=== PATIENT | female | born 1980 | race Caucasian/White ===

== ENCOUNTER 2017-11-13 06:05 | Day surgery (SDC) | payer OTHER ==
[2017-11-09 14:30] VITALS: BMI 31.8
[2017-11-13] MEDS ORDERED: ePHEDrine SULFATE 50 MG/1 ML AMPULE ONE (07:08)
[2017-11-13] MEDS ORDERED: SUCCINYLCHOLINE CHLORIDE 200 MG/10 ML VIAL ONE (07:09)
[2017-11-13] MEDS ORDERED: PROPOFOL 20 ML ONE ×6 (07:09→10:32)
[2017-11-13] MEDS ORDERED: MIDAZOLAM HCL 2 MG/2 ML SINGLE DOSE VIAL ONE ×2 (07:09→10:32)
[2017-11-13] MEDS ORDERED: ceFAZolin SODIUM 1 GM VIAL ONE (07:14)
[2017-11-13] MEDS ORDERED: KETOROLAC TROMETHAMINE 30 MG/1 ML VIAL ONE ×2 (07:14→10:32)
[2017-11-13] MEDS ORDERED: LIDOCAINE HCL/PF 2% SDV 5ML VIAL ONE ×2 (07:14→10:32)
[2017-11-13] MEDS ORDERED: DEXAMETHASONE SOD PHOSPHATE 4 MG/1 ML VIAL ONE ×2 (07:14→13:50)
[2017-11-13] MEDS ORDERED: INSULIN REGULAR HUMAN 100 UNITS/ML *VIAL SQ ONE (07:44)
--- NOTE | 2017-11-13 12:38 | HP ---
History & Physical Update - History History: No Change - Physical Physical: No Change - Assessment Assessment: No Change - Plan Plan: No Change (Consent signed, all questions answered)
--- NOTE | 2017-11-13 14:03 | OP ---
Operative Note - Note: Operative Date: 11/13/17 Pre-Operative Diagnosis: 36yo with menometrorrhagia, anemia Operation: Hysteroscopy, polypectomy, D&C, Endometrial ablation Findings: Endometrial polyp removed with TruClear device Post-Operative Diagnosis: Other (Endometrial polyp) Surgeon: Mana Nolasco Anesthesiologist/HARVEST WORKER: Cheyenne Lara Anesthesia: MAC Specimens Removed: Endometrial polyp and endometrial curettings Estimated Blood Loss (mls): 0 Instrument used (Debridements only): Truclear and Genesys Drains & Tubes with Location: Fluid deficit 30cc Drains, Volume Out (mls): 25 Fluid Volume Replaced (mls): 600 Operative Report Dictated: Yes
[2017-11-13] MEDS ORDERED: ONDANSETRON 4 MG/2 ML VIAL IVPUSH PRN ×2 (14:08→14:17)
[2017-11-13] MEDS ORDERED: oxyCODONE HCL 5 MG TABLET PO PRN ×2 (14:08→14:17)
[2017-11-13] MEDS ORDERED: ACETAMINOPHEN 1000 MG/100 ML VIAL (NON FORMULARY) IVPB PRN (14:08)
[2017-11-13] MEDS ORDERED: LACTATED RINGERS SOLUTION 1,000 ML IV SCH (14:15)
[2017-11-13] MEDS ORDERED: IBUPROFEN 800 MG/8 ML IJ IVPB PRN (14:17)
[2017-11-13] MEDS ORDERED: IBUPROFEN 600 MG TABLET (FP) PO PRN (14:17)
[2017-11-13] MEDS ORDERED: ACETAMINOPHEN INJECTION 100 ML IVPB ONE (14:29)
[2017-11-13] MEDS ORDERED: ELECTROLYTE-148 SOLN 1,000 ML IV SCH (14:30)
[2017-11-13 14:44] VITALS: TEMP 98.6
[2017-11-13] MEDS ORDERED: oxyCODONE HCL 5 MG TABLET ONE (15:52)
[2017-11-13 17:21] VITALS: BP 125/79; PULSE 74
--- NOTE | 2017-11-14 08:08 | OP ---
DATE OF OPERATION: 11/13/2017 PREOPERATIVE DIAGNOSIS: A 36-year-old with menometrorrhagia and anemia. POSTOPERATIVE DIAGNOSES: A 36-year-old with menometrorrhagia and anemia and finding of an endometrial polyp. OPERATION: Hysteroscopy, polypectomy, dilation and curettage and endometrial ablation. SURGEON: Mana Nolasco MD ANESTHESIOLOGIST: Cheyenne Lara MD ANESTHESIA: MAC. SPECIMENS REMOVED: Endometrial polyp and endometrial curettings. DESCRIPTION OF THE OPERATIVE PROCEDURE: After ensuring informed consent, patient was brought to the operating room where she was placed in dorsal lithotomy position. Perineum was prepped and draped in sterile fashion. Bladder was drained of 25 mL of urine. The 5-mm TRUCLEAR hysteroscope was calibrated and primed. The anterior lip of the cervix was articulated with a single-tooth tenaculum and the cervix was gradually dilated up to gauge 19 with DeLee dilators. The 5-mm hysteroscope was introduced into the uterus and posterior uterine wall was found to contain endometrial polyp. Bilateral tubal ostia were visualized. The small TRUCLEAR resecting device was introduced through the port and resection of the polyp as well as the endometrial lining was performed. TRUCLEAR device was removed from the uterine cavity. Sharp curettage was performed as well to assure the uterine sound. Subsequently, the 7-mm Idania HG device was introduced. Cavity was visualized again, cleared of clots and debris and full 10-minute hydrothermal ablation cycle was performed with good visualization of the cavity. The fluid was then cooled down and the device was removed from the uterine cavity. Successful hydrothermal ablation cycle was confirmed. Instruments and sponges were removed from the vagina. Instrument and sponge count was correct x2. Patient received 600 mL of fluids. The fluid deficit was 30 mL. Estimated blood loss was zero. Patient tolerated the procedure well, was extubated and brought to the recovery room in stable condition. Dania [id number]
--- NOTE | 2017-11-15 14:24 | PATH ---
Surgical Pathology Report Patient Name: ACOSTA CANTU [facility]. Rec. #: [id number] /Age/Gender: 1980 (Age: 36) / F Account: [id number] Location: [facility] SURGICAL Taken: 11/13/2017 Received: 11/14/2017 Reported: 11/15/2017 Physicians: Mana Nolasco M.D. Specimen(s) Received ENDOMETRIAL CURETTINGS AND POLYP Clinical History Abnormal menstrual bleeding Final Diagnosis ENDOMETRIAL POLYPS/ENDOMETRIAL CURETTINGS, DILATION AND CURETTAGE: ENDOMETRIAL POLYP, SECRETORY ENDOMETRIUM, SUPERFICIAL MYOMETRIUM, AND BENIGN CERVICAL TISSUE. Electronically Signed Karen Castellanos M.D. Gross Description Received in formalin labeled "endometrial polyps/endometrial curettings," is a 3.8 x 3.5 x 0.4 cm aggregate of beverly soft tissue fragments admixed with blood clot. The formalin is filtered and the specimen is entirely submitted in 3 cassettes. /11/14/[address] [facility]
== END 2017-11-13 17:21 | disposition home or self-care (01) ==
LOC: JASU-SURG 06:05
PROVIDERS: ATTEND Obstetrics & Gynecology
PROC: 0UDB8ZX Extraction of Endometrium, Via Natural or Artificial Opening Endoscopic, Diagnostic (ICD-10-PCS; 2017-11-13)
PROC: 0U5B8ZZ Destruction of Endometrium, Via Natural or Artificial Opening Endoscopic (ICD-10-PCS; principal; 2017-11-13 07:30)
PROC: 0UDB7ZX Extraction of Endometrium, Via Natural or Artificial Opening, Diagnostic (ICD-10-PCS; 2017-11-13 07:30)
PROC: 0UB97ZX Excision of Uterus, Via Natural or Artificial Opening, Diagnostic (ICD-10-PCS; 2017-11-13 07:30)
DX: N92.1 Excessive and frequent menstruation with irregular cycle (principal); N84.0 Polyp of corpus uteri; D64.9 Anemia, unspecified
CPT/HCPCS: 82962; 84703; 88305-TC; 94760

== ENCOUNTER 2020-06-06 18:48 | Inpatient (IN) | payer SELFPAY ==
[2020-06-06] MEDS ORDERED: SODIUM CHLORIDE 0.9% 500 ML INFUS.BAG IV ONE ×2 (20:35→22:41)
[2020-06-06] MEDS ORDERED: morphine CARPU-JECT 2 MG/1 ML DISP.SYRIN IVPUSH ONE (20:35)
[2020-06-06] MEDS ORDERED: INSULIN REGULAR HUMAN 100 UNITS/ML *VIAL SQ ONE (20:36)
[2020-06-06 20:37] LABS: BASO % 0.3 % (0-2.0); HEMATOCRIT 50.6 % (32.4-45.2); HEMOGLOBIN 17.5 GM/dL (10.7-15.3); LYMPH % 11.6 % (8-40); MCH 29.9 pg (25.7-33.7); MCHC 34.6 g/dl (32.0-36.0); MEAN CELL VOLUME 86.4 fl (80-96); MEAN PLT VOLUME 8.3 fl (7.5-11.1); MONO % 9.2 % (3.8-10.2); NEUT % 78.9 % (42.8-82.8); PLATELET COUNT 526 K/MM3 (134-434); RBC 5.85 M/mm3 (3.60-5.2); RDW 13.5 % (11.6-15.6); WHITE BLOOD COUNT 13.7 K/mm3 (4.0-10.0)
[2020-06-06 20:40] LABS: VENOUS BASE EXCESS -16.1 mmol/L (-2-2); VENOUS O2 SATURATION 75.3 % (70-80); VENOUS PCO2 20.3 mmHg (38-52); VENOUS PH 7.241 (7.310-7.410)
[2020-06-06 20:47] LABS: EPI CELLS 24 /uL (0-25.1); HYALINE CASTS 3 /uL (0-3.1); PH,URINE 5.5 (5.0-8.0); URINE APPEARANCE CLEAR; URINE BACTERIA 231 /uL (0-1359); URINE BILIRUBIN NEGATIVE (NEGATIVE); URINE COLOR YELLOW; URINE GLUCOSE (UA) 3+ (NEGATIVE); URINE KETONE 4+ (NEGATIVE); URINE LEUK ESTERASE NEGATIVE (NEGATIVE); URINE NITRITE NEGATIVE (NEGATIVE); URINE PROTEIN 1+ (NEGATIVE); URINE RBC 11 /uL (0-23.9); URINE UROBILINOGEN 0.2 mg/dL (0.2-1.0); URINE WBC 12 /uL (0-25.8)
--- NOTE | 2020-06-06 20:49 | PDOC ---
History of Present Illness - General Chief Complaint: Depression Stated Complaint: DEPRESSION Time Seen by Provider: 06/06/20 19:40 - History of Present Illness Initial Comments: Haven Kothari is a 39 y/o female with PMH significant for DM, HLD, anxiety, depression, brought in by today for failure to thrive and d epression. Per , pt's 19 year old son recently and was buried a couple of days ago. For the past 5 days, pt has not been eating or drinking, has not wanted to get out of bed. Today, pt started vomiting and became concerned and brought her in. Pt states that she has not been able to manage her diabetes well. Pt endorses feeling depressed. Denies SI/HI. Reports visual hallucinations of her son standing next to her, but denies any command hallucinations. Denies ETOH/drug use. Reports mild chest tightness and shortness of breath which she attributes to anxiety. No abdominal pain. No back pain. No leg swelling. No diarrhea/dysuria. Past History - Medical History Allergies/Adverse Reactions: Allergies Allergy/AdvReac Type Severity Reaction Status Date / Time No Known Allergies Allergy Verified 06/06/20 18:54 Home Medications: Ambulatory Orders Unobtainable 06/06/20 Anemia: No Asthma: No Cancer: No Cardiac Disorders: No CVA: No COPD: No CHF: No Dementia: No Diabetes: Yes GI Disorders: No Disorders: No HTN: No Hypercholesterolemia: No Liver Disease: No Psychiatric Problems: Yes (ANXIETY) Seizures: No Thyroid Disease: No - Surgical History Abdominal Surgery: Yes Appendectomy: No Cardiac Surgery: No Cholecystectomy: Yes Lung Surgery: No Neurologic Surgery: No Orthopedic Surgery: No - Reproductive History Is Patient Now?: No - Psycho-Social/Smoking History Smoking History: Never smoked Have you smoked in the past 12 months: No Number of Cigarettes Smoked Daily: 0 Review of Systems - Review of Systems Comments:: GENERAL/CONSTITUTIONAL: No fever or chills. Reports generalized fatigue and lethargy. HEAD, EYES, EARS, NOSE AND THROAT: No change in vision. No change in hearing. No sore throat._ CARDIOVASCULAR: Reports mild chest tightness and shortness of breath. RESPIRATORY: Denies cough, hemoptysis_ GASTROINTESTINAL: Reports nausea and vomiting. No diarrhea or constipation._ GENITOURINARY: No dysuria, frequency, or change in urination._ MUSCULOSKELETAL: No joint or muscle swelling or pain. No neck or back pain._ SKIN: No rash_ NEUROLOGIC: Reports mild headache. No vertigo, loss of consciousness, or change in strength/sensation._ ENDOCRINE: No increased thirst. No abnormal weight change_ HEMATOLOGIC/LYMPHATIC: No anemia, easy bleeding, or history of blood clots._ ALLERGIC/IMMUNOLOGIC: No hives or skin allergy._ *Physical Exam - Vital Signs Last Vital Signs Temp Pulse Resp BP Pulse Ox 97.8 F 127 H 18 118/81 97 06/06/20 18:51 06/06/20 18:51 06/06/20 18:51 06/06/20 18:51 06/06/20 18:51 - Physical Exam GENERAL: Awake, alert, and oriented to person/place/time, in no acute distress_ HEAD: No signs of trauma, normocephalic, atraumatic _ EYES: PERRLA, EOMI, sclera anicteric, conjunctiva clear_ ENT: Hearing grossly normal, nares patent, oropharynx clear without exudates. No uvular deviation. Dry mucous membranes. NECK: Normal ROM, supple, no lymphadenopathy, JVD, or masses_ LUNGS: No distress, speaks in full sentences, clear to auscultation bilaterally _ HEART: Regular rate and rhythm, normal S1 and S2, no murmurs appreciated, peripheral pulses normal and equal bilaterally._ ABDOMEN: Soft, nontender, normoactive bowel sounds. No guarding, no rebound. No masses_ EXTREMITIES: Normal inspection, Normal range of motion, no edema. No clubbing or cyanosis_ NEUROLOGICAL: Cranial nerves II through XII grossly intact. Normal speech, normal gait, no focal sensorimotor deficits _ SKIN: Warm, Dry, normal turgor, no rashes or lesions noted ED Treatment Course - LABORATORY CBC & Chemistry Diagram: 06/06/20 20:15 06/07/20 00:10 - ADDITIONAL ORDERS Additional order review: Laboratory Results 06/06/20 06/06/20 06/06/20 20:30 20:15 19:43 VBG pH 7.241 L POC VBG pCO2 20.3 L POC VBG pO2 45.6 VBG HCO3 8.5 L VBG O2 Sat (Carol) 75.3 VBG Base Excess -16.1 L POC Glucometer 359 Urine Color Yellow Urine Appearance Clear Urine pH 5.5 D Ur Specific [place] 1.035 Urine Protein 1+ H Urine Glucose (UA) 3+ H Urine Ketones 4+ H Urine Blood Trace Urine Nitrite Negative Urine Bilirubin Negative Urine Urobilinogen 0.2 Ur Leukocyte Esterase Negative Urine WBC (Auto) 12 Urine RBC (Auto) 11 Urine Casts (Auto) 3 U Epithel Cells (Auto) 24 Urine Bacteria (Auto) 231 06/06/20 06/06/20 20:15 19:43 RBC 5.85 H MCV 86.4 MCHC 34.6 RDW 13.5 MPV 8.3 Neutrophils % 78.9 Lymphocytes % 11.6 D Monocytes % 9.2 Eosinophils % 0.0 D Basophils % 0.3 POC Glucometer 359 - RADIOLOGY Radiology Studies Ordered: Category Date Time Status CHEST X-RAY PORTABLE* [RAD] Stat Radiology 06/06/20 20:02 Ordered Medical Decision Making - Medical Decision Making 39F hx of DM, depression, anxiety, presenting today with failure to thrive and vomiting after her son recently. Has not been able to take her DM medications. -cbc, cmp -ekg, trop, cxr -vbg -beta hydroxybutyrate -tsh -lipase -ua, ucx -serum preg -tox screen -insulin 6 units SQ -fluids 06/06/20 22:20 EKG shows sinus tachycardia, 112 bpm, no axis deviation, CA 134, QTc 515, no ST elevation/depression, CXR negative for acute intrathoracic pathology. Labs reviewed. Pt noted to be in DKA. Laboratory Last Values WBC 13.7 K/mm3 (4.0-10.0) H 06/06/20 20:15 RBC 5.85 M/mm3 (3.60-5.2) H 06/06/20 20:15 Hgb 17.5 GM/dL (10.7-15.3) H 06/06/20 20:15 Hct 50.6 % (32.4-45.2) H D 06/06/20 20:15 MCV 86.4 fl (80-96) 06/06/20 20:15 MCH 29.9 pg (25.7-33.7) 06/06/20 20:15 MCHC 34.6 g/dl (32.0-36.0) 06/06/20 20:15 RDW 13.5 % (11.6-15.6) 06/06/20 20:15 Plt Count 526 K/MM3 (134-434) H D 06/06/20 20:15 MPV 8.3 fl (7.5-11.1) 06/06/20 20:15 Absolute Neuts (auto) 10.8 K/mm3 (1.5-8.0) H 06/06/20 20:15 Neutrophils % 78.9 % (42.8-82.8) 06/06/20 20:15 Lymphocytes % 11.6 % (8-40) D 06/06/20 20:15 Monocytes % 9.2 % (3.8-10.2) 06/06/20 20:15 Eosinophils % 0.0 % (0-4.5) D 06/06/20 20:15 Basophils % 0.3 % (0-2.0) 06/06/20 20:15 Nucleated RBC % 0 % (0-0) 06/06/20 20:15 VBG pH 7.241 (7.310-7.410) L 06/06/20 20:15 POC VBG pCO2 20.3 mmHg (38-52) L 06/06/20 20:15 POC VBG pO2 45.6 mmHg (28-48) 06/06/20 20:15 VBG HCO3 8.5 mmol/L (23-29) L 06/06/20 20:15 VBG O2 Sat (Carol) 75.3 % (70-80) 06/06/20 20:15 VBG Base Excess -16.1 mmol/L (-2-2) L 06/06/20 20:15 Sodium 127 mmol/L (136-145) L 06/06/20 20:15 Potassium 3.7 mmol/L (3.5-5.1) 06/06/20 20:15 Chloride 95 mmol/L (98-107) L 06/06/20 20:15 Carbon Dioxide 11 mmol/L (21-32) L 06/06/20 20:15 Anion Gap 22 MMOL/L (8-16) H 06/06/20 20:15 BUN 13.9 mg/dL (7-18) 06/06/20 20:15 Creatinine 0.9 mg/dL (0.55-1.3) 06/06/20 20:15 Est GFR (CKD-EPI)AfAm 93.35 06/06/20 20:15 Est GFR (CKD-EPI)NonAf 80.54 06/06/20 20:15 POC Glucometer 360 UNITS (80-120) 06/06/20 21:23 Random Glucose 327 mg/dL (74-106) H 06/06/20 20:15 Lactic Acid 1.4 mmol/L (0.4-2.0) 06/06/20 20:15 Calcium 9.3 mg/dL (8.5-10.1) 06/06/20 20:15 Total Bilirubin 0.6 mg/dL (0.2-1) 06/06/20 20:15 AST 13 U/L (15-37) L 06/06/20 20:15 ALT 31 U/L (13-61) 06/06/20 20:15 Alkaline Phosphatase 126 U/L (45-117) H 06/06/20 20:15 Creatine Kinase 83 U/L (26-192) 06/06/20:15 Troponin I < 0.02 ng/ml (0.00-0.05) 06/06/20 20:15 Total Protein 8.7 g/dl (6.4-8.2) H 06/06/20 20:15 Albumin 3.3 g/dl (3.4-5.0) L 06/06/20 20:15 Lipase 313 U/L (73-393) 06/06/20 20:15 TSH 1.61 uIU/ml (0.358-3.74) 06/06/20 20:15 Serum , Qual Negative 06/06/20 20: Urine Color Yellow 06/06/20 20: Urine Appearance Clear 06/06/20 20:30 Urine pH 5.5 (5.0-8.0) D 06/06/20 20:30 Ur Specific [place] 1.035 (1.010-1.035) 06/06/20 20:30 Urine Protein 1+ (NEGATIVE) H 06/06/20 20:30 Urine Glucose (UA) 3+ (NEGATIVE) H 06/06/20 20:30 Urine Ketones 4+ (NEGATIVE) H 06/06/20 20:30 Urine Blood Trace (NEGATIVE) 06/06/20 20:30 Urine Nitrite Negative (NEGATIVE) 06/06/20 20:30 Urine Bilirubin Negative (NEGATIVE) 06/06/20 20:30 Urine Urobilinogen 0.2 mg/dL (0.2-1.0) 06/06/20 20:30 Ur Leukocyte Esterase Negative (NEGATIVE) 06/06/20 20:30 Urine WBC (Auto) 12 /uL (0-25.8) 06/06/20 20:30 Urine RBC (Auto) 11 /uL (0-23.9) 06/06/20 20:30 Urine Casts (Auto) 3 /uL (0-3.1) 06/06/20 20:30 U Epithel Cells (Auto) 24 /uL (0-25.1) 06/06/20 20:30 Urine Bacteria (Auto) 231 /uL (0-1359) 06/06/20 20:30 Opiates Screen Negative ng/ml (WGCCVT=993) 06/06/20 20:30 Methadone Screen Negative ng/ml (PWAFNP=057) 06/06/20 20:30 Barbiturate Screen Negative ng/ml (YTPPLB=640) 06/06/20 20:30 Phencyclidine Screen Negative ng/ml (CUTOFF=25) 06/06/20 20:30 Ur Amphetamines Screen Negative ng/ml (SXAPJA=505) 06/06/20 20:30 MDMA (Ecstasy) Screen Negative ng/ml (IWNZQF=758) 06/06/20 20:30 Benzodiazepines Screen Negative ng/ml (IQGBHV=428) 06/06/20 20:30 Cocaine Screen Negative ng/ml (YJCJJI=843) 06/06/20 20:30 U Marijuana (THC) Screen Positive ng/ml (CUTOFF=50) A* 06/06/20 20:30 Alcohol, Quantitative < 3 mg/dL (0.0-5.0) 06/06/20 20:15 06/06/20 23:21 Case d/w Dr. Taylor who accepts the patient for admission under Dr. Gomez. 06/07/20 00:01 Labs reviewed. Pt started on D5 + 1/2 NS + 20mEQ K. Insulin drip started at 0.1 mg/kg/hour. Laboratory Tests 06/06/20 06/06/20 06/06/20 19:43 20:15 20:15 WBC 13.7 H RBC 5.85 H Hgb 17.5 H Hct 50.6 H D MCV 86.4 MCH 29.9 MCHC 34.6 RDW 13.5 Plt Count 526 H D MPV 8.3 Absolute Neuts (auto) 10.8 H Neutrophils % 78.9 Lymphocytes % 11.6 D Monocytes % 9.2 Eosinophils % 0.0 D Basophils % 0.3 Nucleated RBC % 0 VBG pH POC VBG pCO2 POC VBG pO2 VBG HCO3 VBG O2 Sat (Carol) VBG Base Excess Sodium Potassium Chloride Carbon Dioxide Anion Gap BUN Creatinine Est GFR (CKD-EPI)AfAm Est GFR (CKD-EPI)NonAf POC Glucometer 359 Random Glucose Lactic Acid Calcium Total Bilirubin AST ALT Alkaline Phosphatase Creatine Kinase Troponin I Total Protein Albumin Lipase TSH Serum , Qual Negative Urine Color Urine Appearance Urine pH Ur Specific [place] Urine Protein Urine Glucose (UA) Urine Ketones Urine Blood Urine Nitrite Urine Bilirubin Urine Urobilinogen Ur Leukocyte Esterase Urine WBC (Auto) Urine RBC (Auto) Urine Casts (Auto) U Epithel Cells (Auto) Urine Bacteria (Auto) Opiates Screen Methadone Screen Barbiturate Screen Phencyclidine Screen Ur Amphetamines Screen MDMA (Ecstasy) Screen Benzodiazepines Screen Cocaine Screen U Marijuana (THC) Screen Alcohol, Quantitative 06/06/20 06/06/20 06/06/20 20:15 20:15 20:15 WBC RBC Hgb Hct MCV MCH MCHC RDW Plt Count MPV Absolute Neuts (auto) Neutrophils % Lymphocytes % Monocytes % Eosinophils % Basophils % Nucleated RBC % VBG pH 7.241 L POC VBG pCO2 20.3 L POC VBG pO2 45.6 VBG HCO3 8.5 L VBG O2 Sat (Carol) 75.3 VBG Base Excess -16.1 L Sodium 127 L Potassium 3.7 Chloride 95 L Carbon Dioxide 11 L Anion Gap 22 H BUN 13.9 Creatinine 0.9 Est GFR (CKD-EPI)AfAm 93.35 Est GFR (CKD-EPI)NonAf 80.54 POC Glucometer Random Glucose 327 H Lactic Acid 1.4 Calcium 9.3 Total Bilirubin 0.6 AST 13 L ALT 31 Alkaline Phosphatase 126 H Creatine Kinase 83 Troponin I < 0.02 Total Protein 8.7 H Albumin 3.3 L Lipase 313 TSH 1.61 Serum , Qual Urine Color Urine Appearance Urine pH Ur Specific [place] Urine Protein Urine Glucose (UA) Urine Ketones Urine Blood Urine Nitrite Urine Bilirubin Urine Urobilinogen Ur Leukocyte Esterase Urine WBC (Auto) Urine RBC (Auto) Urine Casts (Auto) U Epithel Cells (Auto) Urine Bacteria (Auto) Opiates Screen Methadone Screen Barbiturate Screen Phencyclidine Screen Ur Amphetamines Screen MDMA (Ecstasy) Screen Benzodiazepines Screen Cocaine Screen U Marijuana (THC) Screen Alcohol, Quantitative 06/06/20 06/06/20 06/06/20 20:15 20:30 20:30 WBC RBC Hgb Hct MCV MCH MCHC RDW Plt Count MPV Absolute Neuts (auto) Neutrophils % Lymphocytes % Monocytes % Eosinophils % Basophils % Nucleated RBC % VBG pH POC VBG pCO2 POC VBG pO2 VBG HCO3 VBG O2 Sat (Carol) VBG Base Excess Sodium Potassium Chloride Carbon Dioxide Anion Gap BUN Creatinine Est GFR (CKD-EPI)AfAm Est GFR (CKD-EPI)NonAf POC Glucometer Random Glucose Lactic Acid Calcium Total Bilirubin AST ALT Alkaline Phosphatase Creatine Kinase Troponin I Total Protein Albumin Lipase TSH Serum , Qual Urine Color Yellow Urine Appearance Clear Urine pH 5.5 D Ur Specific [place] 1.035 Urine Protein 1+ H Urine Glucose (UA) 3+ H Urine Ketones 4+ H Urine Blood Trace Urine Nitrite Negative Urine Bilirubin Negative Urine Urobilinogen 0.2 Ur Leukocyte Esterase Negative Urine WBC (Auto) 12 Urine RBC (Auto) 11 Urine Casts (Auto) 3 U Epithel Cells (Auto) 24 Urine Bacteria (Auto) 231 Opiates Screen Negative Methadone Screen Negative Barbiturate Screen Negative Phencyclidine Screen Negative Ur Amphetamines Screen Negative MDMA (Ecstasy) Screen Negative Benzodiazepines Screen Negative Cocaine Screen Negative U Marijuana (THC) Screen Positive A* Alcohol, Quantitative < 3 06/06/20 06/06/20 06/06/20 21:23 22:20 23:12 WBC RBC Hgb Hct MCV MCH MCHC RDW Plt Count MPV Absolute Neuts (auto) Neutrophils % Lymphocytes % Monocytes % Eosinophils % Basophils % Nucleated RBC % VBG pH POC VBG pCO2 POC VBG pO2 VBG HCO3 VBG O2 Sat (Carol) VBG Base Excess Sodium 131 L Potassium 3.6 Chloride 101 Carbon Dioxide 12 L Anion Gap 18 H BUN 12.9 Creatinine 0.9 Est GFR (CKD-EPI)AfAm 93.35 Est GFR (CKD-EPI)NonAf 80.54 POC Glucometer 360 164 Random Glucose 223 H Lactic Acid Calcium 8.7 Total Bilirubin AST ALT Alkaline Phosphatase Creatine Kinase Troponin I Total Protein Albumin Lipase TSH Serum , Qual Urine Color Urine Appearance Urine pH Ur Specific [place] Urine Protein Urine Glucose (UA) Urine Ketones Urine Blood Urine Nitrite Urine Bilirubin Urine Urobilinogen Ur Leukocyte Esterase Urine WBC (Auto) Urine RBC (Auto) Urine Casts (Auto) U Epithel Cells (Auto) Urine Bacteria (Auto) Opiates Screen Methadone Screen Barbiturate Screen Phencyclidine Screen Ur Amphetamines Screen MDMA (Ecstasy) Screen Benzodiazepines Screen Cocaine Screen U Marijuana (THC) Screen Alcohol, Quantitative Discharge - Discharge Information Problems reviewed: Yes Clinical Impression/Diagnosis: DKA (diabetic ketoacidoses) Qualifiers: Diabetes mellitus type: type 2 Diabetes mellitus complication detail: without coma Qualified Code(s): E11.10 - Type 2 diabetes mellitus with ketoacidosis without coma Condition: Guarded - Admission Yes - Follow up/Referral - Patient Discharge Instructions - Post Discharge Activity
[2020-06-06] MEDS ORDERED: MORPHINE SULFATE 2 MG/ML VIAL ONE (20:55)
[2020-06-06 20:57] LABS: COCAINE, UR NEGATIVE ng/ml (CUTOFF=300); METHADONE, UR NEGATIVE ng/ml (CUTOFF=300); OPIATES, URI NEGATIVE ng/ml (CUTOFF=300); PHENCYCLIDINE,URINE NEGATIVE ng/ml (CUTOFF=25); URINE AMPHETAMINES NEGATIVE ng/ml (CUTOFF=500); URINE BARBITURATES NEGATIVE ng/ml (CUTOFF=200); URINE BENZODIAZEPINES NEGATIVE ng/ml (CUTOFF=200)
[2020-06-06] MEDS ORDERED: INSULIN REGULAR HUMAN 100 UNITS/ML *VIAL ONE (20:57)
[2020-06-06 21:06] LABS: ALBUMIN 3.3 g/dl (3.4-5.0); ALK PHOS 126 U/L (45-117); ANION GAP 22 MMOL/L (8-16); BILIRUBIN,TOTAL 0.6 mg/dL (0.2-1); BLOOD UREA NITROGEN 13.9 mg/dL (7-18); CALCIUM 9.3 mg/dL (8.5-10.1); CHLORIDE 95 mmol/L (98-107); CO2 11 mmol/L (21-32); CREATININE 0.9 mg/dL (0.55-1.3); GLUCOSE,RANDOM 327 mg/dL (74-106); LIPASE 313 U/L (73-393); POTASSIUM 3.7 mmol/L (3.5-5.1); SGOT/AST 13 U/L (15-37); SGPT/ALT 31 U/L (13-61); SODIUM 127 mmol/L (136-145); TOT PROT 8.7 g/dl (6.4-8.2)
[2020-06-06] MEDS ORDERED: SODIUM CHLORIDE 1,000 ML with POTASSIUM CHLORIDE 20 MEQ IVPB STA (21:16)
[2020-06-06] MEDS ORDERED: INSULIN REGULAR HUMAN 100 UNITS/ML *VIAL IVPUSH ONE (21:39)
[2020-06-06 22:50] LABS: BLOOD UREA NITROGEN 12.9 mg/dL (7-18); CALCIUM 8.7 mg/dL (8.5-10.1); CREATININE 0.9 mg/dL (0.55-1.3); POTASSIUM 3.6 mmol/L (3.5-5.1)
--- NOTE | 2020-06-06 23:00 | PDOC ---
Documentation entered by Debi Roberts SCRIBE, acting as scribe for Dionne Contreras MD. Dionne Contreras MD: This documentation has been prepared by the greyibeAlejandra Sydney, SCRIBE, under my direction and personally reviewed by me in its entirety. I confirm that the documentation accurately reflects all work, treatment, procedures, and medical decision making performed by me. Attending Attestation - Resident Resident Name: Shabbir Salgado - ED Attending Attestation I have performed the following: I have examined & evaluated the patient, The case was reviewed & discussed with the resident, I agree w/resident's findings & plan, Exceptions are as noted - HPI HPI: 06/06/20 20:48 Patient is a 39 year old female with a significant past medical history of DM, HTN, anxiety who presents to the ED with five days of decreased oral intake. As per patient, her 19 year old son recently and the patient and her family buried him on Sunday. Since then, patient reports decreased eating and drinking to the point where her family are force feeding her some soup. Patient also notes not taking her medications. Denies headache, fever, chills, shortness of breath, nausea, vomiting, diarrhea, or urinary changes. Allergies: NKDA - Physicial Exam PE: 06/06/20 20:48 GENERAL: Well-appearing, well-nourished. No apparent distress. HEENT: +mouth is dry Normocephalic, atraumatic. PERRL, EOM intact. CARDIOVASCULAR: +tachycardiac at 127 Normal S1, S2. Regular rhythm. PULMONARY: Clear to auscultation bilaterally. ABDOMEN: Soft, non-distended, non-tender. EXTREMITIES: Normal ROM in all four extremities. No gross deformities. SKIN: Warm, dry. No rash NEUROLOGICAL: No focal neurological deficits. - Medical Decision Making 06/06/20 20:33 Pt has not been eating and drinking and taking her meds for the past week.. Her 19 yo son and she buried him on Sunday, 5 days ago. Pt states that he was visiting [place] for his Bday and here. Recently the family moved to [place]. Pt has DM and HTN and anxiety. She is tachy and dehydrated. Pt states that her whole body hurts. 06/06/20 22:55 Repeat chem shows continued anion gap. Pt will be sent to the ICU 06/06/20 23:50 PT HAS A HEMOLYZED K+ AND SHE WILL HAVE A REPEAT. ICU RESIDENT IS HERE TO ADMIT THE PATIENT Heart Score/ECG Review - ECG Intrepretation Rhythm: Regular Rhythm - Bartley Bartley: Normal - P and UT Prominent R with upright T in V1 (true posterior AR): No Delta Wave(s) Present: No WPW: No - QRS Poor R Wave Progression: No Q Wave Present: No - ST and T Early Repolarization: No Non Specific ST-T Wave changes: No Flattened T Waves: No Prolonged Q-T Interval: No - ECG Impressions Normal ECG: Yes Non-specific ST Elevation: No Ischemic Changes: No Bradycardia: No Torsades xenia Pointes: No WPW: No Discharge - Discharge Information Problems reviewed: Yes Clinical Impression/Diagnosis: DKA (diabetic ketoacidoses) - Follow up/Referral - Patient Discharge Instructions - Post Discharge Activity
[2020-06-06] MEDS ORDERED: POTASSIUM CHLORIDE 30 MEQ in SODIUM CHLORIDE 1,000 ML IVPB STA (23:09)
[2020-06-06] MEDS ORDERED: D5-1/2NS+20 MEQ KCL - 20 MEQ/1,000 ML INFUS.BAG IV SCH (23:30)
[2020-06-06] MEDS ORDERED: INSULIN REGULAR 100 UNITS in SODIUM CHLORIDE 99 ML IVPB SCH (23:45)
[2020-06-07 00:49] LABS: BLOOD UREA NITROGEN 11.8 mg/dL (7-18); CALCIUM 8.5 mg/dL (8.5-10.1); CREATININE 1.1 mg/dL (0.55-1.3); POTASSIUM 3.6 mmol/L (3.5-5.1)
--- NOTE | 2020-06-07 02:27 | PDOC ---
*Physical Exam - Vital Signs Last Vital Signs Temp Pulse Resp BP Pulse Ox 97.8 F 111 H 18 101/58 L 100 06/06/20 18:51 06/06/20 23:40 06/06/20 23:40 06/06/20 23:40 06/06/20 23:40 ED Treatment Course - LABORATORY CBC & Chemistry Diagram: 06/06/20 20:15 06/07/20 00:10 - ADDITIONAL ORDERS Additional order review: Laboratory Results 06/06/20 06/06/20 06/06/20 23:12 22:20 22:20 VBG pH POC VBG pCO2 POC VBG pO2 VBG HCO3 VBG O2 Sat (Carol) VBG Base Excess Sodium 131 L Potassium 3.6 Chloride 101 Carbon Dioxide 12 L Anion Gap 18 H BUN 12.9 Creatinine 0.9 Est GFR (CKD-EPI)AfAm 93.35 Est GFR (CKD-EPI)NonAf 80.54 POC Glucometer 164 Random Glucose 223 H Lactic Acid Calcium 8.7 Total Bilirubin AST ALT Alkaline Phosphatase Creatine Kinase Troponin I Total Protein Albumin Lipase TSH Serum , Qual Urine Color Urine Appearance Urine pH Ur Specific [place] Urine Protein Urine Glucose (UA) Urine Ketones Urine Blood Urine Nitrite Urine Bilirubin Urine Urobilinogen Ur Leukocyte Esterase Urine WBC (Auto) Urine RBC (Auto) Urine Casts (Auto) U Epithel Cells (Auto) Urine Bacteria (Auto) Opiates Screen Methadone Screen Acetaminophen < 2.0 Barbiturate Screen Phencyclidine Screen Ur Amphetamines Screen MDMA (Ecstasy) Screen Benzodiazepines Screen Cocaine Screen U Marijuana (THC) Screen Alcohol, Quantitative 06/06/20 06/06/20 06/06/20 21:23 20:30 20:30 VBG pH POC VBG pCO2 POC VBG pO2 VBG HCO3 VBG O2 Sat (Carol) VBG Base Excess Sodium Potassium Chloride Carbon Dioxide Anion Gap BUN Creatinine Est GFR (CKD-EPI)AfAm Est GFR (CKD-EPI)NonAf POC Glucometer 360 Random Glucose Lactic Acid Calcium Total Bilirubin AST ALT Alkaline Phosphatase Creatine Kinase Troponin I Total Protein Albumin Lipase TSH Serum , Qual Urine Color Yellow Urine Appearance Clear Urine pH 5.5 D Ur Specific [place] 1.035 Urine Protein 1+ H Urine Glucose (UA) 3+ H Urine Ketones 4+ H Urine Blood Trace Urine Nitrite Negative Urine Bilirubin Negative Urine Urobilinogen 0.2 Ur Leukocyte Esterase Negative Urine WBC (Auto) 12 Urine RBC (Auto) 11 Urine Casts (Auto) 3 U Epithel Cells (Auto) 24 Urine Bacteria (Auto) 231 Opiates Screen Negative Methadone Screen Negative Acetaminophen Barbiturate Screen Negative Phencyclidine Screen Negative Ur Amphetamines Screen Negative MDMA (Ecstasy) Screen Negative Benzodiazepines Screen Negative Cocaine Screen Negative U Marijuana (THC) Screen Positive A* Alcohol, Quantitative 06/06/20 06/06/20 06/06/20 20:15 20:15 20:15 VBG pH 7.241 L POC VBG pCO2 20.3 L POC VBG pO2 45.6 VBG HCO3 8.5 L VBG O2 Sat (Carol) 75.3 VBG Base Excess -16.1 L Sodium Potassium Chloride Carbon Dioxide Anion Gap BUN Creatinine Est GFR (CKD-EPI)AfAm Est GFR (CKD-EPI)NonAf POC Glucometer Random Glucose Lactic Acid 1.4 Calcium Total Bilirubin AST ALT Alkaline Phosphatase Creatine Kinase Troponin I Total Protein Albumin Lipase TSH Serum , Qual Urine Color Urine Appearance Urine pH Ur Specific [place] Urine Protein Urine Glucose (UA) Urine Ketones Urine Blood Urine Nitrite Urine Bilirubin Urine Urobilinogen Ur Leukocyte Esterase Urine WBC (Auto) Urine RBC (Auto) Urine Casts (Auto) U Epithel Cells (Auto) Urine Bacteria (Auto) Opiates Screen Methadone Screen Acetaminophen Barbiturate Screen Phencyclidine Screen Ur Amphetamines Screen MDMA (Ecstasy) Screen Benzodiazepines Screen Cocaine Screen U Marijuana (THC) Screen Alcohol, Quantitative < 3 06/06/20 06/06/20 06/06/20 20:15 20:15 19:43 VBG pH POC VBG pCO2 POC VBG pO2 VBG HCO3 VBG O2 Sat (Carol) VBG Base Excess Sodium 127 L Potassium 3.7 Chloride 95 L Carbon Dioxide 11 L Anion Gap 22 H BUN 13.9 Creatinine 0.9 Est GFR (CKD-EPI)AfAm 93.35 Est GFR (CKD-EPI)NonAf 80.54 POC Glucometer 359 Random Glucose 327 H Lactic Acid Calcium 9.3 Total Bilirubin 0.6 AST 13 L ALT 31 Alkaline Phosphatase 126 H Creatine Kinase 83 Troponin I < 0.02 Total Protein 8.7 H Albumin 3.3 L Lipase 313 TSH 1.61 Serum , Qual Negative Urine Color Urine Appearance Urine pH Ur Specific [place] Urine Protein Urine Glucose (UA) Urine Ketones Urine Blood Urine Nitrite Urine Bilirubin Urine Urobilinogen Ur Leukocyte Esterase Urine WBC (Auto) Urine RBC (Auto) Urine Casts (Auto) U Epithel Cells (Auto) Urine Bacteria (Auto) Opiates Screen Methadone Screen Acetaminophen Barbiturate Screen Phencyclidine Screen Ur Amphetamines Screen MDMA (Ecstasy) Screen Benzodiazepines Screen Cocaine Screen U Marijuana (THC) Screen Alcohol, Quantitative 06/06/20 06/06/20 06/06/20 23:12 21:23 20:15 RBC 5.85 H MCV 86.4 MCHC 34.6 RDW 13.5 MPV 8.3 Neutrophils % 78.9 Lymphocytes % 11.6 D Monocytes % 9.2 Eosinophils % 0.0 D Basophils % 0.3 POC Glucometer 164 360 06/06/20 19:43 RBC MCV MCHC RDW MPV Neutrophils % Lymphocytes % Monocytes % Eosinophils % Basophils % POC Glucometer 359 - Medications Given in the ED: ED Medications Discontinued Medications Generic Name Dose Route Start Last Admin Trade Name Freq PRN Reason Stop Dose Admin Potassium Chloride 20 meq/ 1,010 mls @ 1,000 mls/hr 06/06/20 21:16 06/06/20 21:29 Sodium Chloride IVPB 06/06/20 22:16 1,000 mls/hr ASDIR STA Administration Potassium Chloride 30 meq/ 1,015 mls @ 250 mls/hr 06/06/20 23:09 06/06/20 23:40 Sodium Chloride IVPB 06/07/20 03:12 Not Given ASDIR STA Insulin Human Regular 100 100 mls @ 7.484 mls/hr 06/06/20 23:45 06/07/20 00:57 units/ Sodium Chloride IVPB 0.1 units/kg/hr TITR SILVANA 7.484 mls/hr Administration Protocol 0.1 UNITS/KG/HR Insulin Human Regular 6 units 06/06/20 20:36 06/06/20 21:05 Novolin R Vial *For Ivpush Or Iv Drip Only* SQ 06/06/20 20:37 6 units ONCE ONE Administration Insulin Human Regular 5 units 06/06/20 21:39 06/06/20 21:52 Novolin R Vial *For Ivpush Or Iv Drip Only* IVPUSH 06/06/20 21:40 5 units ONCE ONE Administration Morphine Sulfate 2 mg 06/06/20 20:35 09/13/20 21:03 Morphine Injection - IVPUSH 06/06/20 20:36 2 mg ONCE ONE Administration Sodium Chloride 1,000 ml 06/06/20 20:35 06/06/20 21:05 Normal Saline - IV 06/06/20 20:36 1,000 ml ONCE ONE Administration Sodium Chloride 1,000 ml 06/06/20 22:41 06/06/20 22:47 Normal Saline - IV 06/06/20 22:42 1,000 ml ONCE ONE Administration Medical Decision Making - Medical Decision Making Patient signed out by Dr. Salgado 39 year old female with a significant past medical history of DM, HTN, anxiety who presents to the ED with five days of decreased oral intake. Nonadherent with medications Found to be in DKA ICU consulted Treated with fluids, insulin Anion gap closed while patient was in the ED Stable for med/surg Discussed case with Dr. Thomas who accepted patient for admission under Dr. Murray 06/07/20 02:22 Discharge - Discharge Information Problems reviewed: Yes Clinical Impression/Diagnosis: DKA (diabetic ketoacidoses) Qualifiers: Diabetes mellitus type: type 2 Diabetes mellitus complication detail: without coma Qualified Code(s): E11.10 - Type 2 diabetes mellitus with ketoacidosis without coma Condition: Guarded - Admission Yes - Follow up/Referral - Patient Discharge Instructions - Post Discharge Activity
[2020-06-07 02:37] LABS: MAGNESIUM 2.1 mg/dL (1.8-2.4)
--- NOTE | 2020-06-07 02:57 | PN ---
Teaching Attending Note Name of Resident: Jef Thomas ATTENDING PHYSICIAN STATEMENT I saw and evaluated the patient. I reviewed the resident's note and discussed the case with the resident. I agree with the resident's findings and plan as documented. SUBJECTIVE: Patient is a 39 year old woman with a PMH of Insulin-treated DM, HTN, Depression , Nonadherence with diabetes regimen and Anxiety who presents to the ER with five days of decreased oral intake. As per patient, her 19 year old son recently and the patient and was buried 5 days ago. Since then, patient reports decreased eating and drinking to the point where her family are force feeding her some soup. Patient also notes not taking her medications and states that her whole body hurts. Also within the past few days she got a right thigh tattoo that is painful and she thinks may be infected. Denies headache, fever, chills, shortness of breath, nausea, vomiting or diarrhea. Patient denies dysuria, frequency, urgency, melena, hematochezia or hematuria. Denies alcohol, tobacco or illicit drug use. No sick contacts or recent travels. Patient has a family history of DM in grandparents, father and mother OBJECTIVE: Alert Vital Signs Period Temp Pulse Resp BP Sys/Bear Pulse Ox Last 24 Hr 97.8 F 111-127 18-18 101-118/58-81 97-100 HEENT: No Jaundice, eye redness or discharge, PERRLA, EOMI. Normocephalic, atraumatic. External ears are normal and hearing is grossly intact. No nasal discharge. Neck: Supple, nontender. No palpable adenopathy or thyromegaly. No JVD Chest: Good effort. Clear to auscultation and percussion. Heart: Regular. No S3, rub or murmur Abdomen: Not distended, soft, nontender and no HSM. No rebound or guarding. Normal bowel sounds. Ext: Peripheral pulses intact. No leg edema. Right thigh tattoo with surrounding erythema. Skin: Warm and dry. No petechiae, rash or ecchymosis. Neuro: Alert. Oriented x3. CN 2-12 grossly intact. Sensation grossly intact in all four extremities and DTR are symmetric. Psych: Appropriate mood and affect. Good insight. Home Medications Medication Instructions Recorded Unobtainable 06/06/20 Abnormal Lab Results 06/06/20 06/06/20 06/06/20 20:15 20:15 20:15 WBC 13.7 H RBC 5.85 H Hgb 17.5 H Hct 50.6 H D Plt Count 526 H D Absolute Neuts (auto) 10.8 H VBG pH 7.241 L POC VBG pCO2 20.3 L VBG HCO3 8.5 L VBG Base Excess -16.1 L Sodium 127 L Chloride 95 L Carbon Dioxide 11 L Anion Gap 22 H Random Glucose 327 H AST 13 L Alkaline Phosphatase 126 H Total Protein 8.7 H Albumin 3.3 L Urine Protein Urine Glucose (UA) Urine Ketones U Marijuana (THC) Screen 06/06/20 06/06/20 06/06/20 20:30 20:30 22:20 WBC RBC Hgb Hct Plt Count Absolute Neuts (auto) VBG pH POC VBG pCO2 VBG HCO3 VBG Base Excess Sodium 131 L Chloride Carbon Dioxide 12 L Anion Gap 18 H Random Glucose 223 H AST Alkaline Phosphatase Total Protein Albumin Urine Protein 1+ H Urine Glucose (UA) 3+ H Urine Ketones 4+ H U Marijuana (THC) Screen Positive A* 06/07/20 00:10 WBC RBC Hgb Hct Plt Count Absolute Neuts (auto) VBG pH POC VBG pCO2 VBG HCO3 VBG Base Excess Sodium 134 L Chloride Carbon Dioxide 11 L Anion Gap Random Glucose 187 H AST Alkaline Phosphatase Total Protein Albumin Urine Protein Urine Glucose (UA) Urine Ketones U Marijuana (THC) Screen Current Medications Generic Name Dose Route Start Last Admin Trade Name Freq PRN Reason Stop Dose Admin Bacitracin 1 applic 06/07/20 03:49 Bacitracin - TP BID SILVANA Chlorhexidine Gluconate 1 applic 06/07/20 22:00 Hibiclens For Decolonization - TP HS SILVANA Enoxaparin Sodium 40 mg 06/07/20 10:00 Lovenox - SQ DAILY SILVANA Potassium Chloride/Dextrose/Sod Cl 20 meq in 1,000 mls @ 200 mls/hr 06/06/20 23:30 06/06/20 23:39 D5-1/2ns+20 Meq Kcl - IV 06/07/20 04:40 200 mls/hr ASDIR SILVANA Administration Cefazolin Sodium 1 gm in 50 mls @ 100 mls/hr 06/07/20 10:00 Ancef 1 Gm Premixed Ivpb - IVPB Q8H-IV SILVANA Potassium Chloride 10 meq in 100 mls @ 100 mls/hr 06/07/20 04:00 06/07/20 04:09 Potassium Chloride 10 Meq Premix Ivpb - IVPB 06/07/20 06:59 100 mls/hr Q60M SILVANA Administration Dextrose/Sodium Chloride 1,000 mls @ 125 mls/hr 06/07/20 04:30 D5-Ns - IV ASDIR SILVANA Insulin Aspart 10 units 06/07/20 05:00 Novolog Vial SQ 06/07/20 05:01 ONCE ONE Protocol Insulin Aspart 10 units 06/07/20 09:00 Novolog Vial SQ 06/07/20 09:01 ONCE ONE Protocol Mupirocin 1 applic 06/07/20 10:00 Bactroban Ointment (For Decolonization) - NS 06/12/20 09:59 BID CRITICAL ACCESS HOSPITAL ASSESSMENT AND PLAN: 1. Diabetic ketoacidosis/Cellulitis complicating new right thigh tattoo - Likely due to nonadherence with insulin treatment and possibly cellulitis. No acute abnormality on CXR. Urine toxicology showed marijuana. Treated with insulin, IV KCL and IV NS in the ER. EKG pending. Will treat cellulitis with IV Cefazolin 1 gm q 8 hours, continue IV KCL, SQ insulin since she is going to the floor, and implement sliding scale insulin regimen, give D5NS and monitor BMP q 6 hours until acidosis resolves. Will provide comprehensive diabetes care with patient teaching and counseling about the importance of adherence to prescribed diabetes regimen, euglycemia, eye care and foot care. Viral testing for COVID-19 ordered and patient placed on airborne, droplet and contact isolation. Will continue comprehensive care for all of patients comorbid conditions including generous emotional support for her bereavement. 2. Obesity Counseled on the risks associated with obesity. Will provide patient all the necessary assistance, counseling and positive reinforcement to facilitate weight loss. Consult packaging designer. 3. Hypertension Will restart suitable outpatient antihypertensive drugs when clinically appropriate. Subsequently, will revise regimen to ensure [id number] excellent BP control. Patient counseled on the injurious effects of uncontrolled hypertension. Nonpharmacologic measures to control hypertension like weight loss, salt restriction and exercise stressed. Importance of adherence to treatment regimen and attainment of normotension emphasized. 4. DVT prophylaxis - Lovenox 40 mg SQ q 24 hours. 5. Advance directives - Full code
[2020-06-07] MEDS ORDERED: DEXTROSE 5%-NORMAL SALINE 1,000 ML IV SCH ×2 (04:00→04:30)
[2020-06-07] MEDS: KCL 10 MEQ IVPB 10 MEQ/100 ML INFUS.BAG IVPB SCH ×6 (04:09→22:18)
[2020-06-07] MEDS: BACITRACIN 15 GM TUBE TOPICAL OINTMENT TP SCH ×3 (04:12→22:06)
[2020-06-07] MEDS ORDERED: BACITRACIN 0.9 GM PACKET ONE ×2 (04:14→22:09)
--- NOTE | 2020-06-07 04:29 | CONSULT ---
Consultation: REQUESTING PROVIDER: CONSULT REQUEST: We have been asked to medically evaluate this patient for (specify). 39 yo female with type 2 DM, htn, depression, anxiety, ptsd presents to ED for 1 week of weakness. Pt explains she stopped taking her insulin medication for one week and started feeling weak and have been having nbnb emesis about twice a day for one week. Today the pt had one episode of bloody emesis about "one teaspoon" and decided to come in. Pt denies shortness of breath, fevers, cough, chest pain, abdominal pain, dysuria or urinary frequency. PMH: as above PSH; Tuboligation, cholecystectomy Meds: levemir 50 units; humalog 50 units; lorazepam .5mg PO prn; ramipril 10 mg po; zolpidem 10mg po Allergies: NKA Social: denies smoking drugs alcohol PCP: From [place] REVIEW OF SYSTEMS: CONSTITUTIONAL: Absent: fever, chills, Present: Generalized weakness HEENT: Absent: rhinorrhea, nasal congestion, throat pain, throat swelling, difficulty swallowing, mouth swelling, ear pain, eye pain, visual changes CARDIOVASCULAR: Absent: chest pain, syncope, palpitations, irregular heart rate, lightheadedness, peripheral edema RESPIRATORY: Absent: cough, shortness of breath GASTROINTESTINAL: Absent: abdominal pain present nausea vomiting GENITOURINARY: Absent: dysuria, frequency, urgency, hesitancy SKIN: Absent: rash, itching, pallor NEUROLOGIC: Absent: headache, PHYSICAL EXAMINATION Vital Signs - 24 hr 06/06/20 06/06/20 06/07/20 18:51 23:40 03:02 Temperature 97.8 F 98.1 F Pulse Rate 127 H Pulse Rate [ 111 H 111 H Apical] Respiratory 18 18 18 Rate Blood Pressure 118/81 Blood Pressure 101/58 L 101/58 L [Right Arm] O2 Sat by Pulse 97 100 100 Oximetry (%) GENERAL: Awake, alert, and fully oriented, in no acute distress. HEAD: Normal with no signs of trauma. EYES: Pupils equal, round and reactive to light, extraocular movements intact, sclera anicteric, conjunctiva clear. No lid lag. EARS, NOSE, THROAT: Ears normal, nares patent, oropharynx clear without exud ates. Moist mucous membranes. NECK: Normal range of motion, supple without lymphadenopathy, JVD, or masses. LUNGS: Breath sounds equal, clear to auscultation bilaterally. HEART: Regular rate and rhythm, normal S1 and S2 without murmur, rub or gallop. ABDOMEN: Soft, nontender, not distended, UPPER EXTREMITIES: 2+ pulses, warm, well-perfused. No cyanosis. No clubbing. Cap refill <2 seconds. No peripheral edema. LOWER EXTREMITIES: 2+ pulses, warm, well-perfused. No calf tenderness. No peripheral edema. NEUROLOGICAL: Cranial nerves II-XII grossly intact Laboratory Results - last 24 hr 06/06/20 06/06/20 06/06/20 19:43 20:15 20:15 WBC 13.7 H RBC 5.85 H Hgb 17.5 H Hct 50.6 H D MCV 86.4 MCH 29.9 MCHC 34.6 RDW 13.5 Plt Count 526 H D MPV 8.3 Absolute Neuts (auto) 10.8 H Neutrophils % 78.9 Lymphocytes % 11.6 D Monocytes % 9.2 Eosinophils % 0.0 D Basophils % 0.3 Nucleated RBC % 0 VBG pH POC VBG pCO2 POC VBG pO2 VBG HCO3 VBG O2 Sat (Carol) VBG Base Excess Sodium Potassium Chloride Carbon Dioxide Anion Gap BUN Creatinine Est GFR (CKD-EPI)AfAm Est GFR (CKD-EPI)NonAf POC Glucometer 359 Random Glucose Lactic Acid Calcium Magnesium Total Bilirubin AST ALT Alkaline Phosphatase Creatine Kinase Troponin I Total Protein Albumin Lipase TSH Serum , Qual Negative Urine Color Urine Appearance Urine pH Ur Specific [place] Urine Protein Urine Glucose (UA) Urine Ketones Urine Blood Urine Nitrite Urine Bilirubin Urine Urobilinogen Ur Leukocyte Esterase Urine WBC (Auto) Urine RBC (Auto) Urine Casts (Auto) U Epithel Cells (Auto) Urine Bacteria (Auto) Opiates Screen Methadone Screen Acetaminophen Barbiturate Screen Phencyclidine Screen Ur Amphetamines Screen MDMA (Ecstasy) Screen Benzodiazepines Screen Cocaine Screen U Marijuana (THC) Screen Alcohol, Quantitative 06/06/20 06/06/20 06/06/20 20:15 20:15 20:15 WBC RBC Hgb Hct MCV MCH MCHC RDW Plt Count MPV Absolute Neuts (auto) Neutrophils % Lymphocytes % Monocytes % Eosinophils % Basophils % Nucleated RBC % VBG pH 7.241 L POC VBG pCO2 20.3 L POC VBG pO2 45.6 VBG HCO3 8.5 L VBG O2 Sat (Carol) 75.3 VBG Base Excess -16.1 L Sodium 127 L Potassium 3.7 Chloride 95 L Carbon Dioxide 11 L Anion Gap 22 H BUN 13.9 Creatinine 0.9 Est GFR (CKD-EPI)AfAm 93.35 Est GFR (CKD-EPI)NonAf 80.54 POC Glucometer Random Glucose 327 H Lactic Acid 1.4 Calcium 9.3 Magnesium Total Bilirubin 0.6 AST 13 L ALT 31 Alkaline Phosphatase 126 H Creatine Kinase 83 Troponin I < 0.02 Total Protein 8.7 H Albumin 3.3 L Lipase 313 TSH 1.61 Serum , Qual Urine Color Urine Appearance Urine pH Ur Specific [place] Urine Protein Urine Glucose (UA) Urine Ketones Urine Blood Urine Nitrite Urine Bilirubin Urine Urobilinogen Ur Leukocyte Esterase Urine WBC (Auto) Urine RBC (Auto) Urine Casts (Auto) U Epithel Cells (Auto) Urine Bacteria (Auto) Opiates Screen Methadone Screen Acetaminophen Barbiturate Screen Phencyclidine Screen Ur Amphetamines Screen MDMA (Ecstasy) Screen Benzodiazepines Screen Cocaine Screen U Marijuana (THC) Screen Alcohol, Quantitative 06/06/20 06/06/20 06/06/20 20:15 20:30 20:30 WBC RBC Hgb Hct MCV MCH MCHC RDW Plt Count MPV Absolute Neuts (auto) Neutrophils % Lymphocytes % Monocytes % Eosinophils % Basophils % Nucleated RBC % VBG pH POC VBG pCO2 POC VBG pO2 VBG HCO3 VBG O2 Sat (Carol) VBG Base Excess Sodium Potassium Chloride Carbon Dioxide Anion Gap BUN Creatinine Est GFR (CKD-EPI)AfAm Est GFR (CKD-EPI)NonAf POC Glucometer Random Glucose Lactic Acid Calcium Magnesium Total Bilirubin AST ALT Alkaline Phosphatase Creatine Kinase Troponin I Total Protein Albumin Lipase TSH Serum , Qual Urine Color Yellow Urine Appearance Clear Urine pH 5.5 D Ur Specific [place] 1.035 Urine Protein 1+ H Urine Glucose (UA) 3+ H Urine Ketones 4+ H Urine Blood Trace Urine Nitrite Negative Urine Bilirubin Negative Urine Urobilinogen 0.2 Ur Leukocyte Esterase Negative Urine WBC (Auto) 12 Urine RBC (Auto) 11 Urine Casts (Auto) 3 U Epithel Cells (Auto) 24 Urine Bacteria (Auto) 231 Opiates Screen Negative Methadone Screen Negative Acetaminophen Barbiturate Screen Negative Phencyclidine Screen Negative Ur Amphetamines Screen Negative MDMA (Ecstasy) Screen Negative Benzodiazepines Screen Negative Cocaine Screen Negative U Marijuana (THC) Screen Positive A* Alcohol, Quantitative < 3 06/06/20 06/06/20 06/06/20 21:23 22:20 22:20 WBC RBC Hgb Hct MCV MCH MCHC RDW Plt Count MPV Absolute Neuts (auto) Neutrophils % Lymphocytes % Monocytes % Eosinophils % Basophils % Nucleated RBC % VBG pH POC VBG pCO2 POC VBG pO2 VBG HCO3 VBG O2 Sat (Carol) VBG Base Excess Sodium 131 L Potassium 3.6 Chloride 101 Carbon Dioxide 12 L Anion Gap 18 H BUN 12.9 Creatinine 0.9 Est GFR (CKD-EPI)AfAm 93.35 Est GFR (CKD-EPI)NonAf 80.54 POC Glucometer 360 Random Glucose 223 H Lactic Acid Calcium 8.7 Magnesium Total Bilirubin AST ALT Alkaline Phosphatase Creatine Kinase Troponin I Total Protein Albumin Lipase TSH Serum , Qual Urine Color Urine Appearance Urine pH Ur Specific [place] Urine Protein Urine Glucose (UA) Urine Ketones Urine Blood Urine Nitrite Urine Bilirubin Urine Urobilinogen Ur Leukocyte Esterase Urine WBC (Auto) Urine RBC (Auto) Urine Casts (Auto) U Epithel Cells (Auto) Urine Bacteria (Auto) Opiates Screen Methadone Screen Acetaminophen < 2.0 Barbiturate Screen Phencyclidine Screen Ur Amphetamines Screen MDMA (Ecstasy) Screen Benzodiazepines Screen Cocaine Screen U Marijuana (THC) Screen Alcohol, Quantitative 06/06/20 06/06/20 06/07/20 23:12 23:20 00:10 WBC RBC Hgb Hct MCV MCH MCHC RDW Plt Count MPV Absolute Neuts (auto) Neutrophils % Lymphocytes % Monocytes % Eosinophils % Basophils % Nucleated RBC % VBG pH POC VBG pCO2 POC VBG pO2 VBG HCO3 VBG O2 Sat (Carol) VBG Base Excess Sodium Cancelled 134 L Potassium Cancelled 3.6 Chloride Cancelled 106 Carbon Dioxide Cancelled 11 L Anion Gap Cancelled 16 BUN Cancelled 11.8 Creatinine Cancelled 1.1 Est GFR (CKD-EPI)AfAm Cancelled 73.24 Est GFR (CKD-EPI)NonAf Cancelled 63.19 POC Glucometer 164 Random Glucose Cancelled 187 H Lactic Acid Calcium Cancelled 8.5 Magnesium 2.1 Total Bilirubin AST ALT Alkaline Phosphatase Creatine Kinase Troponin I Total Protein Albumin Lipase TSH Serum , Qual Urine Color Urine Appearance Urine pH Ur Specific [place] Urine Protein Urine Glucose (UA) Urine Ketones Urine Blood Urine Nitrite Urine Bilirubin Urine Urobilinogen Ur Leukocyte Esterase Urine WBC (Auto) Urine RBC (Auto) Urine Casts (Auto) U Epithel Cells (Auto) Urine Bacteria (Auto) Opiates Screen Methadone Screen Acetaminophen Barbiturate Screen Phencyclidine Screen Ur Amphetamines Screen MDMA (Ecstasy) Screen Benzodiazepines Screen Cocaine Screen U Marijuana (THC) Screen Alcohol, Quantitative Active Medications Generic Name Dose Route Start Last Admin Trade Name Freq PRN Reason Stop Dose Admin Bacitracin 1 applic 06/07/20 03:49 06/07/20 04:12 Bacitracin - TP 1 applic BID SILVANA Administration Chlorhexidine Gluconate 1 applic 06/07/20 22:00 Hibiclens For Decolonization - TP HS SILVANA Enoxaparin Sodium 40 mg 06/07/20 10:00 Lovenox - SQ DAILY SILVANA Potassium Chloride/Dextrose/Sod Cl 20 meq in 1,000 mls @ 200 mls/hr 06/06/20 23:30 06/06/20 23:39 D5-1/2ns+20 Meq Kcl - IV 06/07/20 04:40 200 mls/hr ASDIR SILVANA Administration Cefazolin Sodium 1 gm in 50 mls @ 100 mls/hr 06/07/20 10:00 Ancef 1 Gm Premixed Ivpb - IVPB Q8H-IV SILVANA Potassium Chloride 10 meq in 100 mls @ 100 mls/hr 06/07/20 04:00 06/07/20 04:09 Potassium Chloride 10 Meq Premix Ivpb - IVPB 06/07/20 06:59 100 mls/hr Q60M SILVANA Administration Dextrose/Sodium Chloride 1,000 mls @ 125 mls/hr 06/07/20 04:30 D5-Ns - IV ASDIR SILVANA Insulin Aspart 10 units 06/07/20 05:00 Novolog Vial SQ 06/07/20 05:01 ONCE ONE Protocol Insulin Aspart 10 units 06/07/20 09:00 Novolog Vial SQ 06/07/20 09:01 ONCE ONE Protocol Melatonin 10 mg 06/07/20 22:00 Melatonin PO HS SILVANA Mupirocin 1 applic 06/07/20 10:00 Bactroban Ointment (For Decolonization) - NS 06/12/20 09:59 BID SILVANA ASSESSMENT/PLAN: Dispo: Thank you for this consultative opportunity. Pt gap closed in the ER and did not require further use of insulin drip. Pt did not need ICU admission at the moment. WIll be happy to consult if ICU warranted in the future. Visit type - Emergency Visit Emergency Visit: Yes ED Registration Date: 06/06/20 Care time: The patient presented to the Emergency Department on the above date and was hospitalized for further evaluation of their emergent condition. - New Patient This patient is new to me today: Yes Date on this admission: 06/06/20 - Critical Care Critical Care patient: Yes Total Critical Care Time (in minutes): 36 Critical Care Statement: The care of this patient involved high complexity decision making to prevent further life threatening deterioration of the patient's condition and/or to evaluate & treat vital organ system(s) failure or risk of failure. ATTENDING PHYSICIAN STATEMENT I saw and evaluated the patient. I reviewed the resident's note and discussed the case with the resident. I agree with the resident's findings and plan as documented. SUBJECTIVE: OBJECTIVE: ASSESSMENT AND PLAN:
[2020-06-07] MEDS ORDERED: INSULIN (NOVOLOG) ASPART 100 UNITS/ML 10ML VIAL SQ ONE ×4 (05:00→09:00)
--- NOTE | 2020-06-07 05:03 | HP ---
CHIEF COMPLAINT: Not eating for 5 days with right thigh burning and warmth from recent tattoo PCP: Dr. Lee (in [place]) HISTORY OF PRESENT ILLNESS: 39 year old female patient with past medical history that includes Type 2 DM, HTN, Anxiety, Depression, and HLD, who presented to the emergency room with not eating for 5 days with right thigh burning and warmth from a recent tattoo. The patient explained that she lost her mother last year, and she buried her son on Sunday here in [place], and the two recent deaths have been 'too much for her', and so she stopped eating 5 days ago. She would try to eat a little bit of soup but then she would vomit it up. She has type 2 diabetes (not type 1) for 15 years, and has not been taking any of her medications, including her diabetes medications, since Sunday because she thought she should only take her medications if she's eating. Generally, when she checks her blood sugar, she is used to getting readings in the 200's. She takes insulin at home. After her son , her friends came over to comfort her and gave her a tattoo on her right thigh. Since then, the tattoo has started to have peeling skin and ulceration. She attributes this to using the hot tub and washing too much. ER course was notable for: (1) ECG (Sinus tachycardia with premature supraventricular complexes. 112bpm. MD 134ms. QTc 515ms) (2) (3) Recent Travel: Lives in [place]. Used to live here and traveled here to bury her son. PAST MEDICAL HISTORY: Type 2 DM, HTN, Anxiety, Depression, HLD PAST SURGICAL HISTORY: Cholecystectomy, Abdominal surgery, Social History: Smoking: Denies Alcohol: Denies Drugs: Denies Allergies No Known Allergies Allergy (Verified 06/06/20 18:54) HOME MEDICATIONS: Home Medications Medication Instructions Recorded Atorvastatin Ca [Lipitor] 40 mg PO HS 06/07/20 Buspirone HCl [Buspar -] 10 mg PO TID 06/07/20 Lisinopril 5 mg PO BID 06/07/20 Paroxetine HCl 40 mg PO DAILY 06/07/20 hydrOXYzine PAMOATE [Vistaril -] 50 mg PO TID PRN 06/07/20 traZODone HCL [Trazodone HCl] 100 mg PO HS 06/07/20 REVIEW OF SYSTEMS CONSTITUTIONAL: Absent: Denies sick contacts. Denies fever/chills. CARDIOVASCULAR: Absent: Denies chest pain RESPIRATORY: Choking on water because drinking lots of fluids quickly Absent: Denies shortness of breath GASTROINTESTINAL: Nausea. Vomiting up the water she drinks. Absent: Denies diarrhea GENITOURINARY: Urinating more often due to drinking lots of fluids Absent: ENDOCRINE: Thirsty. Drinking a lot of fluids. Hungry. Absent: PHYSICAL EXAMINATION Vital Signs - 24 hr 06/06/20 06/06/20 06/07/20 18:51 23:40 03:02 Temperature 97.8 F 98.1 F Pulse Rate 127 H Pulse Rate [ 111 H 111 H Apical] Respiratory 18 18 18 Rate Blood Pressure 118/81 Blood Pressure 101/58 L 101/58 L [Right Arm] O2 Sat by Pulse 97 100 100 Oximetry (%) GENERAL: Awake, alert, and fully oriented, in no acute distress. HEAD: Normal with no signs of trauma. EYES: Pupils equal, round and reactive to light, extraocular movements intact. No lid lag. EARS, NOSE, THROAT: Ears normal, nares patent, oropharynx clear without exudates. Somewhat dry mucous membranes. NECK: Normal range of motion, supple without lymphadenopathy, JVD, or masses. LUNGS: Breath sounds equal, clear to auscultation bilaterally. No wheezes, and no crackles. No accessory muscle use. HEART: Regular rate and rhythm, normal S1 and S2 without murmur, rub or gallop. ABDOMEN: Soft, nontender, not distended, normoactive bowel sounds, no guarding, no rebound, no masses. MUSCULOSKELETAL: Normal range of motion at all joints. No bony deformities or tenderness. UPPER EXTREMITIES: 2+ pulses, warm, well-perfused. No cyanosis. No clubbing. No peripheral edema. LOWER EXTREMITIES: 2+ pulses, warm, well-perfused. No calf tenderness. No peripheral edema. NEUROLOGICAL: Normal speech. PSYCHIATRIC: Cooperative. Good eye contact. Appropriate mood and affect. SKIN: Warm, dry, normal turgor, normal capillary refill. Right thigh with tattoo in red ink that has peeling skin and about 1 or 2 square millimeters of ulceration in the corner of the tattoo. Laboratory Results - last 24 hr 0906/06/20 06/06/20 19:43 20:15 20:15 WBC 13.7 H RBC 5.85 H Hgb 17.5 H Hct 50.6 H D MCV 86.4 MCH 29.9 MCHC 34.6 RDW 13.5 Plt Count 526 H D MPV 8.3 Absolute Neuts (auto) 10.8 H Neutrophils % 78.9 Lymphocytes % 11.6 D Monocytes % 9.2 Eosinophils % 0.0 D Basophils % 0.3 Nucleated RBC % 0 VBG pH POC VBG pCO2 POC VBG pO2 VBG HCO3 VBG O2 Sat (Carol) VBG Base Excess Sodium Potassium Chloride Carbon Dioxide Anion Gap BUN Creatinine Est GFR (CKD-EPI)AfAm Est GFR (CKD-EPI)NonAf POC Glucometer 359 Random Glucose Lactic Acid Calcium Magnesium Total Bilirubin AST ALT Alkaline Phosphatase Creatine Kinase Troponin I Total Protein Albumin Lipase TSH Serum , Qual Negative Urine Color Urine Appearance Urine pH Ur Specific [place] Urine Protein Urine Glucose (UA) Urine Ketones Urine Blood Urine Nitrite Urine Bilirubin Urine Urobilinogen Ur Leukocyte Esterase Urine WBC (Auto) Urine RBC (Auto) Urine Casts (Auto) U Epithel Cells (Auto) Urine Bacteria (Auto) Opiates Screen Methadone Screen Acetaminophen Barbiturate Screen Phencyclidine Screen Ur Amphetamines Screen MDMA (Ecstasy) Screen Benzodiazepines Screen Cocaine Screen U Marijuana (THC) Screen Alcohol, Quantitative 06/06/20 06/06/20 06/06/20 20:15 20:15 20:15 WBC RBC Hgb Hct MCV MCH MCHC RDW Plt Count MPV Absolute Neuts (auto) Neutrophils % Lymphocytes % Monocytes % Eosinophils % Basophils % Nucleated RBC % VBG pH 7.241 L POC VBG pCO2 20.3 L POC VBG pO2 45.6 VBG HCO3 8.5 L VBG O2 Sat (Carol) 75.3 VBG Base Excess -16.1 L Sodium 127 L Potassium 3.7 Chloride 95 L Carbon Dioxide 11 L Anion Gap 22 H BUN 13.9 Creatinine 0.9 Est GFR (CKD-EPI)AfAm 93.35 Est GFR (CKD-EPI)NonAf 80.54 POC Glucometer Random Glucose 327 H Lactic Acid 1.4 Calcium 9.3 Magnesium Total Bilirubin 0.6 AST 13 L ALT 31 Alkaline Phosphatase 126 H Creatine Kinase 83 Troponin I < 0.02 Total Protein 8.7 H Albumin 3.3 L Lipase 313 TSH 1.61 Serum , Qual Urine Color Urine Appearance Urine pH Ur Specific [place] Urine Protein Urine Glucose (UA) Urine Ketones Urine Blood Urine Nitrite Urine Bilirubin Urine Urobilinogen Ur Leukocyte Esterase Urine WBC (Auto) Urine RBC (Auto) Urine Casts (Auto) U Epithel Cells (Auto) Urine Bacteria (Auto) Opiates Screen Methadone Screen Acetaminophen Barbiturate Screen Phencyclidine Screen Ur Amphetamines Screen MDMA (Ecstasy) Screen Benzodiazepines Screen Cocaine Screen U Marijuana (THC) Screen Alcohol, Quantitative 06/06/20 06/06/20 06/06/20 20:15 20:30 20:30 WBC RBC Hgb Hct MCV MCH MCHC RDW Plt Count MPV Absolute Neuts (auto) Neutrophils % Lymphocytes % Monocytes % Eosinophils % Basophils % Nucleated RBC % VBG pH POC VBG pCO2 POC VBG pO2 VBG HCO3 VBG O2 Sat (Carol) VBG Base Excess Sodium Potassium Chloride Carbon Dioxide Anion Gap BUN Creatinine Est GFR (CKD-EPI)AfAm Est GFR (CKD-EPI)NonAf POC Glucometer Random Glucose Lactic Acid Calcium Magnesium Total Bilirubin AST ALT Alkaline Phosphatase Creatine Kinase Troponin I Total Protein Albumin Lipase TSH Serum , Qual Urine Color Yellow Urine Appearance Clear Urine pH 5.5 D Ur Specific [place] 1.035 Urine Protein 1+ H Urine Glucose (UA) 3+ H Urine Ketones 4+ H Urine Blood Trace Urine Nitrite Negative Urine Bilirubin Negative Urine Urobilinogen 0.2 Ur Leukocyte Esterase Negative Urine WBC (Auto) 12 Urine RBC (Auto) 11 Urine Casts (Auto) 3 U Epithel Cells (Auto) 24 Urine Bacteria (Auto) 231 Opiates Screen Negative Methadone Screen Negative Acetaminophen Barbiturate Screen Negative Phencyclidine Screen Negative Ur Amphetamines Screen Negative MDMA (Ecstasy) Screen Negative Benzodiazepines Screen Negative Cocaine Screen Negative U Marijuana (THC) Screen Positive A* Alcohol, Quantitative < 3 06/06/20 06/06/20 06/06/20 21:23 22:20 22:20 WBC RBC Hgb Hct MCV MCH MCHC RDW Plt Count MPV Absolute Neuts (auto) Neutrophils % Lymphocytes % Monocytes % Eosinophils % Basophils % Nucleated RBC % VBG pH POC VBG pCO2 POC VBG pO2 VBG HCO3 VBG O2 Sat (Carol) VBG Base Excess Sodium 131 L Potassium 3.6 Chloride 101 Carbon Dioxide 12 L Anion Gap 18 H BUN 12.9 Creatinine 0.9 Est GFR (CKD-EPI)AfAm 93.35 Est GFR (CKD-EPI)NonAf 80.54 POC Glucometer 360 Random Glucose 223 H Lactic Acid Calcium 8.7 Magnesium Total Bilirubin AST ALT Alkaline Phosphatase Creatine Kinase Troponin I Total Protein Albumin Lipase TSH Serum , Qual Urine Color Urine Appearance Urine pH Ur Specific [place] Urine Protein Urine Glucose (UA) Urine Ketones Urine Blood Urine Nitrite Urine Bilirubin Urine Urobilinogen Ur Leukocyte Esterase Urine WBC (Auto) Urine RBC (Auto) Urine Casts (Auto) U Epithel Cells (Auto) Urine Bacteria (Auto) Opiates Screen Methadone Screen Acetaminophen < 2.0 Barbiturate Screen Phencyclidine Screen Ur Amphetamines Screen MDMA (Ecstasy) Screen Benzodiazepines Screen Cocaine Screen U Marijuana (THC) Screen Alcohol, Quantitative 06/06/20 06/06/20 06/07/20 23:12 23:20 00:10 WBC RBC Hgb Hct MCV MCH MCHC RDW Plt Count MPV Absolute Neuts (auto) Neutrophils % Lymphocytes % Monocytes % Eosinophils % Basophils % Nucleated RBC % VBG pH POC VBG pCO2 POC VBG pO2 VBG HCO3 VBG O2 Sat (Carol) VBG Base Excess Sodium Cancelled 134 L Potassium Cancelled 3.6 Chloride Cancelled 106 Carbon Dioxide Cancelled 11 L Anion Gap Cancelled 16 BUN Cancelled 11.8 Creatinine Cancelled 1.1 Est GFR (CKD-EPI)AfAm Cancelled 73.24 Est GFR (CKD-EPI)NonAf Cancelled 63.19 POC Glucometer 164 Random Glucose Cancelled 187 H Lactic Acid Calcium Cancelled 8.5 Magnesium 2.1 Total Bilirubin AST ALT Alkaline Phosphatase Creatine Kinase Troponin I Total Protein Albumin Lipase TSH Serum , Qual Urine Color Urine Appearance Urine pH Ur Specific [place] Urine Protein Urine Glucose (UA) Urine Ketones Urine Blood Urine Nitrite Urine Bilirubin Urine Urobilinogen Ur Leukocyte Esterase Urine WBC (Auto) Urine RBC (Auto) Urine Casts (Auto) U Epithel Cells (Auto) Urine Bacteria (Auto) Opiates Screen Methadone Screen Acetaminophen Barbiturate Screen Phencyclidine Screen Ur Amphetamines Screen MDMA (Ecstasy) Screen Benzodiazepines Screen Cocaine Screen U Marijuana (THC) Screen Alcohol, Quantitative 06/07/20 04:36 WBC RBC Hgb Hct MCV MCH MCHC RDW Plt Count MPV Absolute Neuts (auto) Neutrophils % Lymphocytes % Monocytes % Eosinophils % Basophils % Nucleated RBC % VBG pH POC VBG pCO2 POC VBG pO2 VBG HCO3 VBG O2 Sat (Carol) VBG Base Excess Sodium Potassium Chloride Carbon Dioxide Anion Gap BUN Creatinine Est GFR (CKD-EPI)AfAm Est GFR (CKD-EPI)NonAf POC Glucometer 264 Random Glucose Lactic Acid Calcium Magnesium Total Bilirubin AST ALT Alkaline Phosphatase Creatine Kinase Troponin I Total Protein Albumin Lipase TSH Serum , Qual Urine Color Urine Appearance Urine pH Ur Specific [place] Urine Protein Urine Glucose (UA) Urine Ketones Urine Blood Urine Nitrite Urine Bilirubin Urine Urobilinogen Ur Leukocyte Esterase Urine WBC (Auto) Urine RBC (Auto) Urine Casts (Auto) U Epithel Cells (Auto) Urine Bacteria (Auto) Opiates Screen Methadone Screen Acetaminophen Barbiturate Screen Phencyclidine Screen Ur Amphetamines Screen MDMA (Ecstasy) Screen Benzodiazepines Screen Cocaine Screen U Marijuana (THC) Screen Alcohol, Quantitative ASSESSMENT/PLAN: 39 year old female patient with past medical history that includes Type 2 DM, HTN, Anxiety, Depression, and HLD, who presented to the emergency room with not eating for 5 days with right thigh burning and warmth from a recent tattoo. 1. DKA - Insulin - BMPs - Monitoring K and GAP - D5-NS in one arm - 3 bags IV KCl in the other arm 2. Possible right thigh cellulitis - IV Ancef 1gm TID - Bacitracin 3. DM - Insulin - Monitoring K and GAP 4. HTN - Can continue home HTN meds when clinically appropriate 5. Anxiety - Buspirone 6. Depression - Paroxetine 7. HLD - can continue Atorvastatin once patient's medications get a medication reconciliation (dose was not written down in patient's picture list) #FEN - D5-NS, Monitoring Electrolytes DVT PPx - Lovenox SQ Family Medical History Family History: As Documented Family Hx Diabetes: Mother, Father (Type 1 DM) Other Family History: DM in Grandparents and other family relatives Visit type - Emergency Visit Emergency Visit: Yes ED Registration Date: 06/06/20 Care time: The patient presented to the Emergency Department on the above date and was hospitalized for further evaluation of their emergent condition. - New Patient This patient is new to me today: Yes Date on this admission: 06/07/20 - Critical Care Critical Care patient: No ATTENDING PHYSICIAN STATEMENT I saw and evaluated the patient. I reviewed the resident's note and discussed the case with the resident. I agree with the resident's findings and plan as documented. SUBJECTIVE: OBJECTIVE: ASSESSMENT AND PLAN:
[2020-06-07] MEDS ORDERED: KETOROLAC TROMETHAMINE 30 MG/1 ML VIAL IVPUSH ONE (05:24)
[2020-06-07] MEDS ORDERED: ONDANSETRON 4 MG/2 ML VIAL IVPUSH ONE ×2 (05:24→16:09)
[2020-06-07] MEDS ORDERED: KETOROLAC TROMETHAMINE 30 MG/1 ML VIAL ONE (05:25)
[2020-06-07] MEDS ORDERED: HEPARIN NA (PORCINE) 5,000 UNITS/ML 1ML VIAL SQ SCH (06:00)
[2020-06-07 08:39] LABS: BASO % 0.2 % (0-2.0); EOS % 0.4 % (0-4.5); HEMOGLOBIN 15.1 GM/dL (10.7-15.3); LYMPH % 16.5 % (8-40); MCH 29.8 pg (25.7-33.7); MCHC 35.1 g/dl (32.0-36.0); MEAN CELL VOLUME 84.9 fl (80-96); MEAN PLT VOLUME 7.9 fl (7.5-11.1); MONO % 11.6 % (3.8-10.2); NEUT % 71.3 % (42.8-82.8); PLATELET COUNT 387 K/MM3 (134-434); RBC 5.06 M/mm3 (3.60-5.2); RDW 13.6 % (11.6-15.6); WHITE BLOOD COUNT 10.3 K/mm3 (4.0-10.0)
[2020-06-07 09:12] LABS: BLOOD UREA NITROGEN 5.7 mg/dL (7-18); CALCIUM 8.3 mg/dL (8.5-10.1); CREATININE 0.7 mg/dL (0.55-1.3); MAGNESIUM 2.1 mg/dL (1.8-2.4); POTASSIUM 3.3 mmol/L (3.5-5.1)
[2020-06-07 09:21] LABS: PHOSPHOROUS 0.6 mg/dL (2.5-4.9)
[2020-06-07] MEDS ORDERED: ENOXAPARIN NA (PORCINE) 40 MG/0.4 ML DISP.SYRIN SQ ONE (09:30)
[2020-06-07] MEDS ORDERED: CEFAZOLIN 1 GM/D5W 1 GM/50 ML BAG ONE ×2 (09:31→17:06)
[2020-06-07] MEDS: CEFAZOLIN 1 GM/D5W 1 GM/50 ML BAG IVPB SCH ×2 (09:52→18:24)
[2020-06-07] MEDS: ENOXAPARIN NA (PORCINE) 40 MG/0.4 ML DISP.SYRIN SQ SCH (09:56)
[2020-06-07] MEDS: PARoxetine HCL 20 MG TABLET PO SCH (09:56)
[2020-06-07] MEDS ORDERED: MUPIROCIN 2% TOPICAL OINTMENT FOR DECOLONIZATION NS SCH (10:00)
--- NOTE | 2020-06-07 10:38 | EKG ---
Test Reason : Blood Pressure : / mmHG Vent. Rate : 112 BPM Atrial Rate : 112 BPM P-R Int : 134 ms QRS Dur : 078 ms QT Int : 378 ms P-R-T Axes : 074 041 073 degrees QTc Int : 515 ms SINUS TACHYCARDIA WITH PREMATURE SUPRAVENTRICULAR COMPLEXES OTHERWISE NORMAL ECG WHEN COMPARED WITH ECG OF 12-MAY-2016 16:02, PREMATURE SUPRAVENTRICULAR COMPLEXES ARE NOW PRESENT Confirmed by JESUS MEDELLIN MD ([id number]) on 06/07/2020 10:38:28 AM Referred By: Confirmed By:JESUS MEDELLIN MD
[2020-06-07 11:47] LABS: BLOOD UREA NITROGEN 4.9 mg/dL (7-18); CALCIUM 8.6 mg/dL (8.5-10.1); CREATININE 0.7 mg/dL (0.55-1.3); POTASSIUM 3.1 mmol/L (3.5-5.1)
[2020-06-07] MEDS ORDERED: POTASSIUM CHLORIDE TABS 20 MEQ TABLET.ER (FP) PO ONE ×3 (14:11→18:11)
[2020-06-07] MEDS: busPIRone HCL 10 MG TABLET (FP) PO SCH ×2 (14:14→21:17)
[2020-06-07] MEDS ORDERED: KCL 10 MEQ IVPB 10 MEQ/100 ML INFUS.BAG IVPB ONE (17:06)
--- NOTE | 2020-06-07 17:36 | PN ---
Physical Exam: SUBJECTIVE: Patient seen and examined OBJECTIVE: Vital Signs Period Temp Pulse Resp BP Sys/Bear Pulse Ox Last 24 Hr 97.8 F-98.2 F 76-127 18-22 101-124/58-87 97-100 GENERAL: The patient is awake, alert, and fully oriented, in no acute distress. HEAD: Normal with no signs of trauma. EYES: PERRL, extraocular movements intact, sclera anicteric, conjunctiva clear. No ptosis. ENT: Ears normal, nares patent, oropharynx clear without exudates, moist mucous membranes. NECK: Trachea midline, full range of motion, supple. LUNGS: Breath sounds equal, clear to auscultation bilaterally, no wheezes, no crackles, no accessory muscle use. HEART: Regular rate and rhythm, S1, S2 without murmur, rub or gallop. ABDOMEN: Soft, nontender, nondistended, normoactive bowel sounds, no guarding, no rebound, no hepatosplenomegaly, no masses. EXTREMITIES: 2+ pulses, warm, well-perfused, no edema. NEUROLOGICAL: Cranial nerves II through XII grossly intact. Normal speech, gait not observed. PSYCH: Normal mood, normal affect. SKIN: Warm, dry, normal turgor, no rashes or lesions noted Laboratory Results - last 24 hr 06/06/20 06/06/20 06/06/20 19:43 20:15 20:15 WBC 13.7 H RBC 5.85 H Hgb 17.5 H Hct 50.6 H D MCV 86.4 MCH 29.9 MCHC 34.6 RDW 13.5 Plt Count 526 H D MPV 8.3 Absolute Neuts (auto) 10.8 H Neutrophils % 78.9 Lymphocytes % 11.6 D Monocytes % 9.2 Eosinophils % 0.0 D Basophils % 0.3 Nucleated RBC % 0 VBG pH POC VBG pCO2 POC VBG pO2 VBG HCO3 VBG O2 Sat (Carol) VBG Base Excess Sodium Potassium Chloride Carbon Dioxide Anion Gap BUN Creatinine Est GFR (CKD-EPI)AfAm Est GFR (CKD-EPI)NonAf POC Glucometer 359 Random Glucose Lactic Acid Calcium Phosphorus Magnesium Total Bilirubin AST ALT Alkaline Phosphatase Creatine Kinase Troponin I Total Protein Albumin Lipase TSH Serum , Qual Negative Urine Color Urine Appearance Urine pH Ur Specific [place] Urine Protein Urine Glucose (UA) Urine Ketones Urine Blood Urine Nitrite Urine Bilirubin Urine Urobilinogen Ur Leukocyte Esterase Urine WBC (Auto) Urine RBC (Auto) Urine Casts (Auto) U Epithel Cells (Auto) Urine Bacteria (Auto) Salicylates Opiates Screen Methadone Screen Acetaminophen Barbiturate Screen Phencyclidine Screen Ur Amphetamines Screen MDMA (Ecstasy) Screen Benzodiazepines Screen Cocaine Screen U Marijuana (THC) Screen Alcohol, Quantitative 06/06/20 06/06/20 06/06/20 20:15 20:15 20:15 WBC RBC Hgb Hct MCV MCH MCHC RDW Plt Count MPV Absolute Neuts (auto) Neutrophils % Lymphocytes % Monocytes % Eosinophils % Basophils % Nucleated RBC % VBG pH 7.241 L POC VBG pCO2 20.3 L POC VBG pO2 45.6 VBG HCO3 8.5 L VBG O2 Sat (Carol) 75.3 VBG Base Excess -16.1 L Sodium 127 L Potassium 3.7 Chloride 95 L Carbon Dioxide 11 L Anion Gap 22 H BUN 13.9 Creatinine 0.9 Est GFR (CKD-EPI)AfAm 93.35 Est GFR (CKD-EPI)NonAf 80.54 POC Glucometer Random Glucose 327 H Lactic Acid 1.4 Calcium 9.3 Phosphorus Magnesium Total Bilirubin 0.6 AST 13 L ALT 31 Alkaline Phosphatase 126 H Creatine Kinase 83 Troponin I < 0.02 Total Protein 8.7 H Albumin 3.3 L Lipase 313 TSH 1.61 Serum , Qual Urine Color Urine Appearance Urine pH Ur Specific [place] Urine Protein Urine Glucose (UA) Urine Ketones Urine Blood Urine Nitrite Urine Bilirubin Urine Urobilinogen Ur Leukocyte Esterase Urine WBC (Auto) Urine RBC (Auto) Urine Casts (Auto) U Epithel Cells (Auto) Urine Bacteria (Auto) Salicylates Opiates Screen Methadone Screen Acetaminophen Barbiturate Screen Phencyclidine Screen Ur Amphetamines Screen MDMA (Ecstasy) Screen Benzodiazepines Screen Cocaine Screen U Marijuana (THC) Screen Alcohol, Quantitative 06/06/20 06/06/20 06/06/20 20:15 20:30 20:30 WBC RBC Hgb Hct MCV MCH MCHC RDW Plt Count MPV Absolute Neuts (auto) Neutrophils % Lymphocytes % Monocytes % Eosinophils % Basophils % Nucleated RBC % VBG pH POC VBG pCO2 POC VBG pO2 VBG HCO3 VBG O2 Sat (Carol) VBG Base Excess Sodium Potassium Chloride Carbon Dioxide Anion Gap BUN Creatinine Est GFR (CKD-EPI)AfAm Est GFR (CKD-EPI)NonAf POC Glucometer Random Glucose Lactic Acid Calcium Phosphorus Magnesium Total Bilirubin AST ALT Alkaline Phosphatase Creatine Kinase Troponin I Total Protein Albumin Lipase TSH Serum , Qual Urine Color Yellow Urine Appearance Clear Urine pH 5.5 D Ur Specific [place] 1.035 Urine Protein 1+ H Urine Glucose (UA) 3+ H Urine Ketones 4+ H Urine Blood Trace Urine Nitrite Negative Urine Bilirubin Negative Urine Urobilinogen 0.2 Ur Leukocyte Esterase Negative Urine WBC (Auto) 12 Urine RBC (Auto) 11 Urine Casts (Auto) 3 U Epithel Cells (Auto) 24 Urine Bacteria (Auto) 231 Salicylates Opiates Screen Negative Methadone Screen Negative Acetaminophen Barbiturate Screen Negative Phencyclidine Screen Negative Ur Amphetamines Screen Negative MDMA (Ecstasy) Screen Negative Benzodiazepines Screen Negative Cocaine Screen Negative U Marijuana (THC) Screen Positive A* Alcohol, Quantitative < 3 06/06/20 06/06/20 06/06/20 21:23 22:20 22:20 WBC RBC Hgb Hct MCV MCH MCHC RDW Plt Count MPV Absolute Neuts (auto) Neutrophils % Lymphocytes % Monocytes % Eosinophils % Basophils % Nucleated RBC % VBG pH POC VBG pCO2 POC VBG pO2 VBG HCO3 VBG O2 Sat (Carol) VBG Base Excess Sodium 131 L Potassium 3.6 Chloride 101 Carbon Dioxide 12 L Anion Gap 18 H BUN 12.9 Creatinine 0.9 Est GFR (CKD-EPI)AfAm 93.35 Est GFR (CKD-EPI)NonAf 80.54 POC Glucometer 360 Random Glucose 223 H Lactic Acid Calcium 8.7 Phosphorus Magnesium Total Bilirubin AST ALT Alkaline Phosphatase Creatine Kinase Troponin I Total Protein Albumin Lipase TSH Serum , Qual Urine Color Urine Appearance Urine pH Ur Specific [place] Urine Protein Urine Glucose (UA) Urine Ketones Urine Blood Urine Nitrite Urine Bilirubin Urine Urobilinogen Ur Leukocyte Esterase Urine WBC (Auto) Urine RBC (Auto) Urine Casts (Auto) U Epithel Cells (Auto) Urine Bacteria (Auto) Salicylates 2.1 L Opiates Screen Methadone Screen Acetaminophen < 2.0 Barbiturate Screen Phencyclidine Screen Ur Amphetamines Screen MDMA (Ecstasy) Screen Benzodiazepines Screen Cocaine Screen U Marijuana (THC) Screen Alcohol, Quantitative 06/06/20 06/06/20 06/07/20 23:12 23:20 00:10 WBC RBC Hgb Hct MCV MCH MCHC RDW Plt Count MPV Absolute Neuts (auto) Neutrophils % Lymphocytes % Monocytes % Eosinophils % Basophils % Nucleated RBC % VBG pH POC VBG pCO2 POC VBG pO2 VBG HCO3 VBG O2 Sat (Carol) VBG Base Excess Sodium Cancelled 134 L Potassium Cancelled 3.6 Chloride Cancelled 106 Carbon Dioxide Cancelled 11 L Anion Gap Cancelled 16 BUN Cancelled 11.8 Creatinine Cancelled 1.1 Est GFR (CKD-EPI)AfAm Cancelled 73.24 Est GFR (CKD-EPI)NonAf Cancelled 63.19 POC Glucometer 164 Random Glucose Cancelled 187 H Lactic Acid Calcium Cancelled 8.5 Phosphorus Magnesium 2.1 Total Bilirubin AST ALT Alkaline Phosphatase Creatine Kinase Troponin I Total Protein Albumin Lipase TSH Serum , Qual Urine Color Urine Appearance Urine pH Ur Specific [place] Urine Protein Urine Glucose (UA) Urine Ketones Urine Blood Urine Nitrite Urine Bilirubin Urine Urobilinogen Ur Leukocyte Esterase Urine WBC (Auto) Urine RBC (Auto) Urine Casts (Auto) U Epithel Cells (Auto) Urine Bacteria (Auto) Salicylates Opiates Screen Methadone Screen Acetaminophen Barbiturate Screen Phencyclidine Screen Ur Amphetamines Screen MDMA (Ecstasy) Screen Benzodiazepines Screen Cocaine Screen U Marijuana (THC) Screen Alcohol, Quantitative 06/07/20 06/07/20 06/07/20 04:36 08:05 08:05 WBC 10.3 H RBC 5.06 Hgb 15.1 Hct 43.0 D MCV 84.9 MCH 29.8 MCHC 35.1 RDW 13.6 Plt Count 387 D MPV 7.9 Absolute Neuts (auto) 7.3 Neutrophils % 71.3 Lymphocytes % 16.5 D Monocytes % 11.6 H Eosinophils % 0.4 D Basophils % 0.2 Nucleated RBC % 0 VBG pH POC VBG pCO2 POC VBG pO2 VBG HCO3 VBG O2 Sat (Carol) VBG Base Excess Sodium 135 L Potassium 3.3 L Chloride 108 H Carbon Dioxide 18 L Anion Gap 9 BUN 5.7 L Creatinine 0.7 Est GFR (CKD-EPI)AfAm 126.49 Est GFR (CKD-EPI)NonAf 109.14 POC Glucometer 264 Random Glucose 171 H Lactic Acid Calcium 8.3 L Phosphorus 0.6 L* Magnesium 2.1 Total Bilirubin AST ALT Alkaline Phosphatase Creatine Kinase Troponin I Total Protein Albumin Lipase TSH Serum , Qual Urine Color Urine Appearance Urine pH Ur Specific [place] Urine Protein Urine Glucose (UA) Urine Ketones Urine Blood Urine Nitrite Urine Bilirubin Urine Urobilinogen Ur Leukocyte Esterase Urine WBC (Auto) Urine RBC (Auto) Urine Casts (Auto) U Epithel Cells (Auto) Urine Bacteria (Auto) Salicylates Opiates Screen Methadone Screen Acetaminophen Barbiturate Screen Phencyclidine Screen Ur Amphetamines Screen MDMA (Ecstasy) Screen Benzodiazepines Screen Cocaine Screen U Marijuana (THC) Screen Alcohol, Quantitative 06/07/20 06/07/20 06/07/20 09:01 11:06 12:55 WBC RBC Hgb Hct MCV MCH MCHC RDW Plt Count MPV Absolute Neuts (auto) Neutrophils % Lymphocytes % Monocytes % Eosinophils % Basophils % Nucleated RBC % VBG pH POC VBG pCO2 POC VBG pO2 VBG HCO3 VBG O2 Sat (Carol) VBG Base Excess Sodium 138 Potassium 3.1 L Chloride 108 H Carbon Dioxide 17 L Anion Gap 13 BUN 4.9 L Creatinine 0.7 Est GFR (CKD-EPI)AfAm 126.49 Est GFR (CKD-EPI)NonAf 109.14 POC Glucometer 145 223 Random Glucose 179 H Lactic Acid Calcium 8.6 Phosphorus Magnesium Total Bilirubin AST ALT Alkaline Phosphatase Creatine Kinase Troponin I Total Protein Albumin Lipase TSH Serum , Qual Urine Color Urine Appearance Urine pH Ur Specific [place] Urine Protein Urine Glucose (UA) Urine Ketones Urine Blood Urine Nitrite Urine Bilirubin Urine Urobilinogen Ur Leukocyte Esterase Urine WBC (Auto) Urine RBC (Auto) Urine Casts (Auto) U Epithel Cells (Auto) Urine Bacteria (Auto) Salicylates Opiates Screen Methadone Screen Acetaminophen Barbiturate Screen Phencyclidine Screen Ur Amphetamines Screen MDMA (Ecstasy) Screen Benzodiazepines Screen Cocaine Screen U Marijuana (THC) Screen Alcohol, Quantitative Active Medications Generic Name Dose Route Start Last Admin Trade Name Freq PRN Reason Stop Dose Admin Bacitracin 1 applic 06/07/20 03:49 06/07/20 09:59 Bacitracin - TP 1 applic BID SILVANA Administration Buspirone HCl 10 mg 06/07/20 14:00 06/07/20 14:14 Buspar - PO Not Given TID SILVANA Chlorhexidine Gluconate 1 applic 06/07/20 22:00 Hibiclens For Decolonization - TP HS SILVANA Enoxaparin Sodium 40 mg 06/07/20 10:00 06/07/20 09:56 Lovenox - SQ 40 mg DAILY SILVANA Administration Cefazolin Sodium 1 gm in 50 mls @ 100 mls/hr 06/07/20 10:00 06/07/20 09:52 Ancef 1 Gm Premixed Ivpb - IVPB 100 mls/hr Q8H-IV SILVANA Administration Dextrose/Sodium Chloride 1,000 mls @ 125 mls/hr 06/07/20 04:30 06/07/20 04:29 D5-Ns - IV 125 mls/hr ASDIR SILVANA Administration Potassium Chloride 10 meq in 100 mls @ 100 mls/hr 06/07/20 16:15 Potassium Chloride 10 Meq Premix Ivpb - IVPB 06/07/20 19:14 Q60M SILVANA Insulin Aspart 1 vial 06/07/20 16:30 Novolog Vial Sliding Scale - SQ ACHS [facility] Protocol Insulin Detemir 7 units 06/07/20 22:00 Levemir Vial SQ BID@0700,2200 SILVANA Melatonin 10 mg 06/07/20 22:00 Melatonin PO HS SILVANA Mupirocin 1 applic 06/07/20 10:00 Bactroban Ointment (For Decolonization) - NS 06/12/20 09:59 BID SILVANA Paroxetine HCl 40 mg 06/07/20 10:00 06/07/20 09:56 Paxil - PO 40 mg DAILY SILVANA Administration ASSESSMENT/PLAN: 39 year old woman with PMH of Insulin-treated DM, HTN, Depression, Nonadherence with diabetes regimen and Anxiety who presents to the ER with five days of decreased oral intake following the of her son. # DKA pt recieved SQ insulin overnight, no drip started Able to tolerate some food, but has nausea started on Levemir BID, meal and ISS for now denies suicidal ideation, intent trend electrolytes, replece PRN discussed compliance, risks of behavior with pt and family at bedside check HgA1c, BGM cellulitis on Abx HTN Depression DVT prophylaxis Visit type - Emergency Visit Emergency Visit: Yes ED Registration Date: 06/06/20 Care time: The patient presented to the Emergency Department on the above date and was hospitalized for further evaluation of their emergent condition. - New Patient This patient is new to me today: Yes Date on this admission: 06/07/20 - Critical Care Critical Care patient: No - Discharge Referral Referred to [facility] Med [facility] No
[2020-06-07] MEDS ORDERED: SODIUM CHLORIDE 0.45% 1,000 ML IV SCH (17:45)
[2020-06-07] MEDS: INSULIN SLIDING SCALE (NOVOLOG) 1 VIAL SQ SCH ×2 (18:17→21:32)
[2020-06-07] MEDS: INSULIN (NOVOLOG) ASPART 100 UNITS/ML 10ML VIAL SQ SCH (18:18)
[2020-06-07] MEDS ORDERED: KCL 10 MEQ IVPB 20 MEQ/200 ML INFUS.BAG IVPB ONE (20:43)
[2020-06-07] MEDS ORDERED: ACETAMINOPHEN 325 MG TABLET (FP) PO PRN (21:05)
[2020-06-07] MEDS ORDERED: busPIRone HCL 5 MG TABLET ONE (21:06)
[2020-06-07] MEDS ORDERED: ACETAMINOPHEN INJECTION 100 ML IVPB ONE (21:06)
[2020-06-07] MEDS ORDERED: MELATONIN 5 MG TABLETS ONE (21:19)
[2020-06-07] MEDS: MELATONIN 5 MG TABLETS PO SCH (21:31)
[2020-06-07] MEDS: INSULIN (LEVEMIR) 100 UNITS/ML UNITS SQ SCH (21:31)
[2020-06-07] MEDS ORDERED: CHLORHEXIDINE GLUCONATE 4% CLEANSER FOR DECOLONIZATION TP SCH (22:00)
[2020-06-08] MEDS ORDERED: NAPH,MB-DB/K PH,MBDB POWDER PACKET PO ONE (01:15)
[2020-06-08 01:24] VITALS: BMI 32.3
[2020-06-08] MEDS ORDERED: LORazepam 1 MG TABLET PO ONE (01:39)
[2020-06-08] MEDS: CEFAZOLIN 1 GM/D5W 1 GM/50 ML BAG IVPB SCH (02:10)
[2020-06-08] MEDS ORDERED: ONDANSETRON 4 MG TABLET PO ONE (03:50)
[2020-06-08] MEDS ORDERED: INSULIN (NOVOLOG) ASPART 100 UNITS/ML 10ML VIAL ONE (05:56)
[2020-06-08] MEDS: INSULIN SLIDING SCALE (NOVOLOG) 1 VIAL SQ SCH ×4 (06:03→22:32)
[2020-06-08] MEDS: INSULIN (NOVOLOG) ASPART 100 UNITS/ML 10ML VIAL SQ SCH ×3 (06:03→16:48)
[2020-06-08] MEDS: INSULIN (LEVEMIR) 100 UNITS/ML UNITS SQ SCH ×2 (06:07→22:33)
[2020-06-08] MEDS: busPIRone HCL 10 MG TABLET (FP) PO SCH ×4 (06:27→22:32)
--- NOTE | 2020-06-08 08:10 | CON.ID ---
Consult Consult Specialty:: infectious diseases Referred by:: Reason for Consultation:: skin wound, - History of Present Illness Chief Complaint: skin wound History of Present Illness: 39 year old female patient with past medical history that includes Type 2 DM, HTN, Anxiety, Depression, and HLD, admitted from emergency room with not eating for 5 days with right thigh burning and warmth from a recent tattoo. The patie nt explained that she lost her mother last year, and she buried her son on Sunday here in [place], and the two recent deaths have been 'too much for her', and so she stopped eating 5 days ago. . She has type 2 diabetes (not type 1) for 15 years, and has not been taking any of her medications, including her diabetes medications, since Sunday because she thought she should only take her medications if she's eating. After her son , her friends came over to comfort her and gave her a tattoo on her right thigh. Since then, the tattoo has started to have peeling skin and ulceration. She attributes this to using the hot tub and washing too much. also patient has some boils on the rt leg which she says started from yesterday - History Source History Provided By: Patient, Medical Record Limitations to Obtaining History: No Limitations - Past Medical History ...LMP: 05/08/20 ...: No - Alcohol/Substance Use Hx Alcohol Use: No - Smoking History Smoking history: Never smoked Have you smoked in the past 12 months: No Aproximately how many cigarettes per day: 0 Home Medications - Allergies Allergies/Adverse Reactions: Allergies Allergy/AdvReac Type Severity Reaction Status Date / Time No Known Allergies Allergy Verified 06/06/20 18:54 - Home Medications Home Medications: Ambulatory Orders Atorvastatin Ca [Lipitor] 40 mg PO HS 06/07/20 Buspirone HCl [Buspar -] 10 mg PO TID 06/07/20 Lisinopril 5 mg PO BID 06/07/20 Paroxetine HCl 40 mg PO DAILY 06/07/20 hydrOXYzine PAMOATE [Vistaril -] 50 mg PO TID PRN 06/07/20 traZODone HCL [Trazodone HCl] 100 mg PO HS 06/07/20 Family Medical History Family Hx Diabetes: Mother, Father (Type 1 DM) Other Family History: DM in Grandparents and other family relatives Review of Systems - Review of Systems Constitutional: reports: No Symptoms Eyes: reports: No Symptoms HENT: reports: No Symptoms, Ocular Prosthesis Cardiovascular: reports: No Symptoms Respiratory: reports: No Symptoms Gastrointestinal: reports: No Symptoms Genitourinary: reports: No Symptoms Musculoskeletal: reports: No Symptoms Integumentary: reports: Change in Color, Erythema, Wound Neurological: reports: No Symptoms Endocrine: reports: No Symptoms Hematology/Lymphatic: reports: No Symptoms Psychiatric: reports: No Symptoms Physical Exam Vital Signs: Vital Signs Temperature 98.9 F 06/08/20 05:46 Pulse Rate 79 06/08/20 05:46 Respiratory Rate 18 06/08/20 05:46 Blood Pressure 126/64 06/08/20 05:46 O2 Sat by Pulse Oximetry (%) 97 06/08/20 05:46 Constitutional: Yes: Calm, Mild Distress, Obese Eyes: Yes: Conjunctiva Clear HENT: Yes: Atraumatic, Normocephalic Neck: Yes: Supple, Trachea Midline Cardiovascular: Yes: Regular Rate and Rhythm Respiratory: Yes: Regular, CTA Bilaterally Gastrointestinal: Yes: Normal Bowel Sounds, Soft Musculoskeletal: Yes: WNL Extremities: Yes: Other (wound on the rt thigh,--peeled off skin, rt thigh small boils) Wound/Incision: Yes: Dressing Removed, Other Neurological: Yes: Alert, Oriented Psychiatric: Yes: Alert, Oriented Labs: CBC, BMP 06/07/20 08:05 06/07/20 11:06 Imaging - Results Chest X-ray: Report Reviewed, Image Reviewed Assessment/Plan 39 year old female patient with past medical history that includes Type 2 DM, HTN, Anxiety, Depression, and HLD, who presented to the emergency room with not eating for 5 days with right thigh burning and warmth from a recent tattoo. 1. DKA 2. right thigh cellulitis 3. DM 4. HTN 5. Anxiety 6. Depression 7 boils on the left thigh plan will change abx to zosyn will also add oral doxy wound care wound care involvement
[2020-06-08 08:38] LABS: BASO % 0.3 % (0-2.0); EOS % 3.1 % (0-4.5); HEMATOCRIT 40.3 % (32.4-45.2); HEMOGLOBIN 14.2 GM/dL (10.7-15.3); LYMPH % 26.6 % (8-40); MCH 29.2 pg (25.7-33.7); MCHC 35.2 g/dl (32.0-36.0); MEAN CELL VOLUME 82.9 fl (80-96); MEAN PLT VOLUME 7.9 fl (7.5-11.1); MONO % 11.4 % (3.8-10.2); NEUT % 58.6 % (42.8-82.8); PLATELET COUNT 366 K/MM3 (134-434); RBC 4.86 M/mm3 (3.60-5.2); RDW 13.7 % (11.6-15.6); WHITE BLOOD COUNT 10.2 K/mm3 (4.0-10.0)
[2020-06-08 09:01] LABS: ALBUMIN 2.4 g/dl (3.4-5.0); BILIRUBIN,TOTAL 0.6 mg/dL (0.2-1); CALCIUM 8.6 mg/dL (8.5-10.1); CREATININE 0.4 mg/dL (0.55-1.3)
[2020-06-08 09:06] LABS: TOT PROT 5.6 g/dl (6.4-8.2)
[2020-06-08 09:19] LABS: BLOOD UREA NITROGEN 2.6 mg/dL (7-18); POTASSIUM 2.7 mmol/L (3.5-5.1)
[2020-06-08] MEDS ORDERED: DEXTROSE 5%-WATER - 50 ML IVPB ONE ×2 (09:55→17:25)
[2020-06-08] MEDS ORDERED: PIPERACILLIN/TAZOBACTAM 3.375 GM VIAL IVPB ONE ×2 (09:55→17:25)
[2020-06-08] MEDS: PIPERACILLIN/TAZOB 3.375 GM 3.375 GM in DEXTROSE 5%-WATER - 50 ML IVPB SCH ×2 (09:58→17:27)
[2020-06-08] MEDS: DOXYCYCLINE HYCLATE 100 MG CAPSULE PO SCH ×2 (09:58→17:27)
[2020-06-08] MEDS: ENOXAPARIN NA (PORCINE) 40 MG/0.4 ML DISP.SYRIN SQ SCH (09:58)
[2020-06-08] MEDS: PARoxetine HCL 20 MG TABLET PO SCH (09:58)
[2020-06-08] MEDS: BACITRACIN 15 GM TUBE TOPICAL OINTMENT TP SCH ×2 (09:59→22:32)
[2020-06-08] MEDS: KCL 10 MEQ IVPB 10 MEQ/100 ML INFUS.BAG IVPB SCH ×5 (10:29→20:28)
--- NOTE | 2020-06-08 11:40 | PN ---
Physical Exam: SUBJECTIVE: Patient seen and examined. she denies pain. OBJECTIVE: Patient is a 39 year old woman with PMH of Insulin-treated DM, HTN, Depression, Nonadherence with diabetes regimen and Anxiety who presents to the ER with five days of decreased oral intake following the of her son. She was admitted for DKA and received SQ insulin, no drip was started. She was also noted to have right upper thigh cellulitis after a tattoo. Hypokalemia repleted, repeat potassium levels tonight. Period Temp Pulse Resp BP Sys/Bear Pulse Ox Last 24 Hr 98.0 F-98.9 F 76-91 18-19 120-133/64-80 97-100 GENERAL: The patient is awake, alert, and fully oriented, in no acute distress. HEAD: Normal with no signs of trauma. EYES: PERRL, extraocular movements intact, sclera anicteric, conjunctiva clear. No ptosis. ENT: Ears normal, nares patent, oropharynx clear without exudates, moist mucous membranes. NECK: Trachea midline, full range of motion, supple. LUNGS: Breath sounds equal, clear to auscultation bilaterally HEART: Regular rate and rhythm ABDOMEN: Soft, nontender, nondistended, normoactive bowel sounds EXTREMITIES: right thigh cellulitis, appears as a burn rob, multiple small raised pink lesions, will send for lymes titer NEUROLOGICAL: Normal speech, gait not observed. PSYCH: Normal mood, normal affect. SKIN: Warm, dry, normal turgor, no rashes or lesions noted Laboratory Results - last 24 hr 06/06/20 06/06/20 06/06/20 16:51 20:15 22:20 WBC RBC Hgb Hct MCV MCH MCHC RDW Plt Count MPV Absolute Neuts (auto) Neutrophils % Lymphocytes % Monocytes % Eosinophils % Basophils % Nucleated RBC % Sodium Potassium Chloride Carbon Dioxide Anion Gap BUN Creatinine Est GFR (CKD-EPI)AfAm Est GFR (CKD-EPI)NonAf POC Glucometer Random Glucose Hemoglobin A1c % Calcium Magnesium Total Bilirubin AST ALT Alkaline Phosphatase Total Protein Albumin Beta-Hydroxybutyrate 82.3 H Salicylates 2.1 L COVID-19 (SRINIVASAN) Not detected 06/07/20 06/07/20 06/07/20 11:06 12:55 17:52 WBC RBC Hgb Hct MCV MCH MCHC RDW Plt Count MPV Absolute Neuts (auto) Neutrophils % Lymphocytes % Monocytes % Eosinophils % Basophils % Nucleated RBC % Sodium 138 Potassium 3.1 L Chloride 108 H Carbon Dioxide 17 L Anion Gap 13 BUN 4.9 L Creatinine 0.7 Est GFR (CKD-EPI)AfAm 126.49 Est GFR (CKD-EPI)NonAf 109.14 POC Glucometer 223 255 Random Glucose 179 H Hemoglobin A1c % Calcium 8.6 Magnesium Total Bilirubin AST ALT Alkaline Phosphatase Total Protein Albumin Beta-Hydroxybutyrate Salicylates COVID-19 (SRINIVASAN) 06/07/20 06/08/20 06/08/20 21:24 06:02 07:45 WBC 10.2 H RBC 4.86 Hgb 14.2 Hct 40.3 MCV 82.9 MCH 29.2 MCHC 35.2 RDW 13.7 Plt Count 366 MPV 7.9 Absolute Neuts (auto) 6.0 Neutrophils % 58.6 Lymphocytes % 26.6 D Monocytes % 11.4 H Eosinophils % 3.1 D Basophils % 0.3 Nucleated RBC % 0 Sodium Potassium Chloride Carbon Dioxide Anion Gap BUN Creatinine Est GFR (CKD-EPI)AfAm Est GFR (CKD-EPI)NonAf POC Glucometer 141 152 Random Glucose Hemoglobin A1c % Calcium Magnesium Total Bilirubin AST ALT Alkaline Phosphatase Total Protein Albumin Beta-Hydroxybutyrate Salicylates COVID-19 (SRINIVASAN) 06/08/20 06/08/20 06/08/20 07:45 07:45 11:17 WBC RBC Hgb Hct MCV MCH MCHC RDW Plt Count MPV Absolute Neuts (auto) Neutrophils % Lymphocytes % Monocytes % Eosinophils % Basophils % Nucleated RBC % Sodium 138 Potassium 2.7 L* Chloride 102 Carbon Dioxide 26 Anion Gap 9 BUN 2.6 L* Creatinine 0.4 L Est GFR (CKD-EPI)AfAm 152.06 Est GFR (CKD-EPI)NonAf 131.20 POC Glucometer 134 Random Glucose 140 H Hemoglobin A1c % 10.5 H Calcium 8.6 Magnesium 2.0 Total Bilirubin 0.6 AST 14 L ALT 19 Alkaline Phosphatase 82 Total Protein 5.6 L Albumin 2.4 L Beta-Hydroxybutyrate Salicylates COVID-19 (SRINIVASAN) Active Medications Generic Name Dose Route Start Last Admin Trade Name Freq PRN Reason Stop Dose Admin Acetaminophen 650 mg 06/07/20 21:05 06/07/20 21:17 Tylenol - PO 650 mg Q6H PRN Administration PAIN LEVEL 6-10 Bacitracin 1 applic 06/07/20 03:49 06/08/20 09:59 Bacitracin - TP 1 applic BID SILVANA Administration Buspirone HCl 10 mg 06/07/20 14:00 06/08/20 06:27 Buspar - PO Not Given TID SILVANA Chlorhexidine Gluconate 1 applic 06/07/20 22:00 Hibiclens For Decolonization - TP HS [facility] Doxycycline Hyclate 100 mg 06/08/20 10:00 06/08/20 09:58 Vibramycin - PO 100 mg BID@1000,1800 SILVANA Administration Enoxaparin Sodium 40 mg 06/07/20 10:00 06/08/20 09:58 Lovenox - SQ 40 mg DAILY SILVANA Administration Sodium Chloride 1,000 mls @ 50 mls/hr 06/07/20 17:45 06/07/20 18:17 1/2 Normal Saline IV 06/08/20 17:33 50 mls/hr ASDIR SILVANA Administration Piperacillin Sod/Tazobactam 50 mls @ 100 mls/hr 06/08/20 10:00 06/08/20 09:58 Sod 3.375 gm/ Dextrose IVPB 100 mls/hr Q8H-IV [facility] Administration Protocol Potassium Chloride 10 meq in 100 mls @ 100 mls/hr 06/08/20 09:45 06/08/20 10:29 Potassium Chloride 10 Meq Premix Ivpb - IVPB 06/08/20 12:44 100 mls/hr Q60M SILVANA Administration Insulin Aspart 1 vial 06/07/20 16:30 06/08/20 11:24 Novolog Vial Sliding Scale - SQ Not Given ACHS [facility] Protocol Insulin Aspart 5 units 06/07/20 17:45 06/08/20 06:03 Novolog Vial SQ Not Given TIDAC [facility] Protocol Insulin Detemir 7 units 06/07/20 22:00 06/08/20 06:07 Levemir Vial SQ 7 units BID@0700,2200 [facility] Administration Melatonin 10 mg 06/07/20 22:00 06/07/20 21:31 Melatonin PO 10 mg HS SILVANA Administration Mupirocin 1 applic 06/07/20 10:00 Bactroban Ointment (For Decolonization) - NS 06/12/20 09:59 BID [facility] Paroxetine HCl 40 mg 06/07/20 10:00 06/08/20 09:58 Paxil - PO 40 mg DAILY SILVANA Administration ASSESSMENT/PLAN: Problem List - Problems (1) Cellulitis of right thigh Assessment/Plan: large wound of her right thigh after a tattoo was attempted On doxy and zosyn per ID Given Ancef in the ED Wound care daily monitor wound for healing wound care consult Code(s): L03.115 - CELLULITIS OF RIGHT LOWER LIMB (2) Skin lesions Assessment/Plan: scattered pink raised lesions in her inner thighs and a few on her lower left leg send for lymes titer on doxy Code(s): L98.9 - DISORDER OF THE SKIN AND SUBCUTANEOUS TISSUE, UNSPECIFIED (3) DVT prophylaxis Assessment/Plan: scds lovenox 40mg daily Code(s): Z29.9 - ENCOUNTER FOR PROPHYLACTIC MEASURES, UNSPECIFIED (4) Hypokalemia Assessment/Plan: repleted with 3 K runs, but remains low, will give PO and another 2 K riders and recheck tonight. Code(s): E87.6 - HYPOKALEMIA (5) DKA (diabetic ketoacidoses) Assessment/Plan: resolved dka bgms better controlled on novlog ss Code(s): E11.10 - TYPE 2 DIABETES MELLITUS WITH KETOACIDOSIS WITHOUT COMA Qualifiers: Diabetes mellitus type: type 2 Diabetes mellitus complication detail: without coma Qualified Code(s): E11.10 - Type 2 diabetes mellitus with ketoacidosis without coma Visit type - Emergency Visit Emergency Visit: Yes ED Registration Date: 06/06/20 Care time: The patient presented to the Emergency Department on the above date and was hospitalized for further evaluation of their emergent condition. - New Patient This patient is new to me today: Yes Date on this admission: 06/09/20 - Critical Care Critical Care patient: No - Discharge Referral Referred to [facility] Med P.C.: No
[2020-06-08] MEDS: ALBUTEROL SO4 2.5/IPRATROPIUM 0.5 INH SOL 3 ML VIAL.NEB. NEB PRN ×2 (12:50→19:25)
[2020-06-08] MEDS ORDERED: PT OWN MED DRAWER 7, Y5N ONE ×2 (13:14→22:28)
[2020-06-08] MEDS ORDERED: POTASSIUM CHLORIDE ORAL LIQUID 20 MEQ/15 ML PO ONE (17:16)
[2020-06-08] MEDS: MELATONIN 5 MG TABLETS PO SCH (22:32)
[2020-06-09] MEDS: ALBUTEROL SO4 2.5/IPRATROPIUM 0.5 INH SOL 3 ML VIAL.NEB. NEB PRN ×6 (00:12→22:39)
[2020-06-09] MEDS ORDERED: DEXTROSE 5%-WATER - 50 ML IVPB ONE ×3 (01:40→19:57)
[2020-06-09] MEDS ORDERED: PIPERACILLIN/TAZOBACTAM 3.375 GM VIAL IVPB ONE ×3 (01:40→19:57)
[2020-06-09] MEDS: PIPERACILLIN/TAZOB 3.375 GM 3.375 GM in DEXTROSE 5%-WATER - 50 ML IVPB SCH ×3 (01:56→20:00)
[2020-06-09] MEDS ORDERED: LORazepam 0.5 MG TABLET PO ONE (04:11)
[2020-06-09] MEDS: busPIRone HCL 10 MG TABLET (FP) PO SCH ×4 (05:30→21:17)
[2020-06-09] MEDS: traMADol HCL 50 MG TABLET PO ONE ×2 (05:30→05:53)
[2020-06-09] MEDS: INSULIN (NOVOLOG) ASPART 100 UNITS/ML 10ML VIAL SQ SCH ×3 (06:00→17:25)
[2020-06-09] MEDS: INSULIN SLIDING SCALE (NOVOLOG) 1 VIAL SQ SCH ×4 (06:00→21:14)
[2020-06-09] MEDS: INSULIN (LEVEMIR) 100 UNITS/ML UNITS SQ SCH ×2 (06:01→21:14)
[2020-06-09 09:11] LABS: BASO % 0.5 % (0-2.0); EOS % 1.4 % (0-4.5); HEMATOCRIT 39.4 % (32.4-45.2); HEMOGLOBIN 13.9 GM/dL (10.7-15.3); LYMPH % 30.1 % (8-40); MCH 29.4 pg (25.7-33.7); MCHC 35.2 g/dl (32.0-36.0); MEAN CELL VOLUME 83.5 fl (80-96); MONO % 11.7 % (3.8-10.2); NEUT % 56.3 % (42.8-82.8); PLATELET COUNT 383 K/MM3 (134-434); RBC 4.72 M/mm3 (3.60-5.2); RDW 13.8 % (11.6-15.6); WHITE BLOOD COUNT 8.4 K/mm3 (4.0-10.0)
[2020-06-09 10:14] LABS: ALBUMIN 2.7 g/dl (3.4-5.0); BILIRUBIN,TOTAL 0.7 mg/dL (0.2-1); BLOOD UREA NITROGEN 4.6 mg/dL (7-18); CALCIUM 9.4 mg/dL (8.5-10.1); CREATININE 0.5 mg/dL (0.55-1.3); TOT PROT 6.3 g/dl (6.4-8.2)
--- NOTE | 2020-06-09 10:14 | PN ---
Progress Note, Physician - Current Medication List Current Medications: Active Medications Acetaminophen (Tylenol -) 650 mg PO Q6H PRN PRN Reason: PAIN LEVEL 6-10 Last Admin: 06/07/20 21:17 Dose: 650 mg Documented by: Albuterol/Ipratropium (Duoneb -) 1 amp NEB Q6H PRN PRN Reason: SHORTNESS OF BREATH Last Admin: 06/09/20 08:50 Dose: 1 amp Documented by: Bacitracin (Bacitracin -) 1 applic TP BID [facility] Buspirone HCl (Buspar -) 10 mg PO TID [facility] Doxycycline Hyclate (Vibramycin -) 100 mg PO BID@1000,1800 [facility] Last Admin: 06/08/20 17:27 Dose: 100 mg Documented by: Enoxaparin Sodium (Lovenox -) 40 mg SQ DAILY [facility] Piperacillin Sod/Tazobactam (Sod 3.375 gm/ Dextrose) 50 mls @ 100 mls/hr IVPB Q8H-IV [facility]; Protocol Last Admin: 06/09/20 01:56 Dose: 100 mls/hr Documented by: Insulin Aspart (Novolog Vial) 5 units SQ TIDAC [facility]; Protocol Insulin Aspart (Novolog Vial Sliding Scale -) 1 vial SQ ACHS [facility]; Protocol Insulin Detemir (Levemir Vial) 7 units SQ BID@0700,2200 [facility] Melatonin (Melatonin) 10 mg PO HS [facility] Paroxetine HCl (Paxil -) 40 mg PO DAILY [facility] - Objective Vital Signs: Vital Signs Temperature 98.7 F 06/09/20 06:00 Pulse Rate 98 H 06/09/20 06:00 Respiratory Rate 20 06/09/20 06:00 Blood Pressure 128/56 L 06/09/20 06:00 O2 Sat by Pulse Oximetry (%) 97 06/09/20 06:00 Labs: CBC, BMP 06/09/20 08:44 06/09/20 08:44
[2020-06-09 10:23] LABS: POTASSIUM 2.5 mmol/L (3.5-5.1)
[2020-06-09] MEDS ORDERED: POTASSIUM CHLORIDE ORAL LIQUID 20 MEQ/15 ML PO ONE (10:25)
[2020-06-09] MEDS: PARoxetine HCL 20 MG TABLET PO SCH (11:39)
[2020-06-09] MEDS: DOXYCYCLINE HYCLATE 100 MG CAPSULE PO SCH ×2 (11:39→20:01)
[2020-06-09] MEDS: MULTIVITAMINS (DAILY MVI) TABLET (FP) PO SCH (11:39)
[2020-06-09] MEDS: ENOXAPARIN NA (PORCINE) 40 MG/0.4 ML DISP.SYRIN SQ SCH (11:40)
[2020-06-09] MEDS: BACITRACIN 15 GM TUBE TOPICAL OINTMENT TP SCH ×2 (11:42→21:13)
--- NOTE | 2020-06-09 12:51 | EKG ---
Test Reason : Blood Pressure : / mmHG Vent. Rate : 081 BPM Atrial Rate : 081 BPM P-R Int : 132 ms QRS Dur : 078 ms QT Int : 378 ms P-R-T Axes : 056 034 081 degrees QTc Int : 439 ms NORMAL SINUS RHYTHM NORMAL ECG WHEN COMPARED WITH ECG OF 06-JUN-2020 20:32, PREMATURE SUPRAVENTRICULAR COMPLEXES ARE NO LONGER PRESENT Confirmed by MD SOPHIE, DOUGLAS ([id number]) on 06/09/2020 12:51:12 PM Referred By: Harsh HARRIS Confirmed By:DOUGLAS BARRIOS MD
[2020-06-09] MEDS: KCL 10 MEQ IVPB 10 MEQ/100 ML INFUS.BAG IVPB SCH ×3 (14:31→23:51)
--- NOTE | 2020-06-09 16:38 | PN ---
Physical Exam: SUBJECTIVE: Patient seen and examined. denies any palpitation, chest pain or malaise OBJECTIVE: Patient is a 39 year old woman with PMH of Insulin-treated DM, HTN, Depression, Nonadherence with diabetes regimen and Anxiety who presents to the ER with five days of decreased oral intake following the of her son. She was admitted for DKA and received SQ insulin, no drip was started. She was also noted to have right upper thigh cellulitis after a tattoo. Hypokalemia repleted, repeat potassium levels tonight. no changes on ekg Vital Signs Period Temp Pulse Resp BP Sys/Bear Pulse Ox Last 24 Hr 98.4 F-99.2 F 78-98 20-20 94-148/55-91 97-100 GENERAL: The patient is awake, alert, and fully oriented, in no acute distress. HEAD: Normal with no signs of trauma. EYES: PERRL, extraocular movements intact, sclera anicteric, conjunctiva clear. No ptosis. ENT: Ears normal, nares patent, oropharynx clear without exudates, moist mucous membranes. NECK: Trachea midline, full range of motion, supple. LUNGS: Breath sounds equal, clear to auscultation bilaterally HEART: Regular rate and rhythm ABDOMEN: Soft, nontender, nondistended, normoactive bowel sounds EXTREMITIES: right thigh cellulitis, appears as a burn rob, multiple small raised pink lesions, will send for lymes titer NEUROLOGICAL: Normal speech, gait not observed. PSYCH: Normal mood, normal affect. SKIN: Warm, dry, normal turgor, no rashes or lesions noted Laboratory Results - last 24 hr 06/08/20 06/08/20 06/08/20 16:10 22:31 23:55 WBC RBC Hgb Hct MCV MCH MCHC RDW Plt Count MPV Absolute Neuts (auto) Neutrophils % Lymphocytes % Monocytes % Eosinophils % Basophils % Nucleated RBC % Sodium Potassium 2.7 L* 3.5 Chloride Carbon Dioxide Anion Gap BUN Creatinine Est GFR (CKD-EPI)AfAm Est GFR (CKD-EPI)NonAf POC Glucometer 129 Random Glucose Calcium Magnesium Total Bilirubin AST ALT Alkaline Phosphatase Total Protein Albumin 06/09/20 06/09/20 06/09/20 05:52 08:44 08:44 WBC 8.4 RBC 4.72 Hgb 13.9 Hct 39.4 MCV 83.5 MCH 29.4 MCHC 35.2 RDW 13.8 Plt Count 383 MPV 8.0 Absolute Neuts (auto) 4.8 Neutrophils % 56.3 Lymphocytes % 30.1 Monocytes % 11.7 H Eosinophils % 1.4 Basophils % 0.5 Nucleated RBC % 0 Sodium 139 Potassium 2.5 L* Chloride 102 Carbon Dioxide 28 Anion Gap 8 BUN 4.6 L Creatinine 0.5 L Est GFR (CKD-EPI)AfAm 141.30 Est GFR (CKD-EPI)NonAf 121.92 POC Glucometer 211 Random Glucose 170 H Calcium 9.4 Magnesium 2.0 Total Bilirubin 0.7 AST 14 L ALT 22 Alkaline Phosphatase 88 Total Protein 6.3 L Albumin 2.7 L 06/09/20 11:40 WBC RBC Hgb Hct MCV MCH MCHC RDW Plt Count MPV Absolute Neuts (auto) Neutrophils % Lymphocytes % Monocytes % Eosinophils % Basophils % Nucleated RBC % Sodium Potassium Chloride Carbon Dioxide Anion Gap BUN Creatinine Est GFR (CKD-EPI)AfAm Est GFR (CKD-EPI)NonAf POC Glucometer 189 Random Glucose Calcium Magnesium Total Bilirubin AST ALT Alkaline Phosphatase Total Protein Albumin Active Medications Generic Name Dose Route Start Last Admin Trade Name Freq PRN Reason Stop Dose Admin Acetaminophen 650 mg 06/07/20 21:05 06/07/20 21:17 Tylenol - PO 650 mg Q6H PRN Administration PAIN LEVEL 6-10 Albuterol/Ipratropium 1 amp 06/08/20 11:40 06/09/20 13:20 Duoneb - NEB 1 amp Q6H PRN Administration SHORTNESS OF BREATH Bacitracin 1 applic 06/09/20 10:00 06/09/20 11:42 Bacitracin - TP 1 appful BID [facility] Administration Buspirone HCl 10 mg 06/09/20 14:00 06/09/20 14:31 Buspar - PO 10 mg TID [facility] Administration Doxycycline Hyclate 100 mg 06/08/20 10:00 06/09/20 11:39 Vibramycin - PO 100 mg BID@1000,1800 [facility] Administration Enoxaparin Sodium 40 mg 06/09/20 10:00 06/09/20 11:40 Lovenox - SQ 40 mg DAILY [facility] Administration Piperacillin Sod/Tazobactam 50 mls @ 100 mls/hr 06/08/20 10:00 06/09/20 11:43 Sod 3.375 gm/ Dextrose IVPB 100 mls/hr Q8H-IV [facility] Administration Protocol Insulin Aspart 5 units 06/09/20 11:00 06/09/20 12:08 Novolog Vial SQ 5 units TIDAC [facility] Administration Protocol Insulin Aspart 1 vial 06/09/20 11:00 06/09/20 12:09 Novolog Vial Sliding Scale - SQ Not Given ACHS [facility] Protocol Insulin Detemir 7 units 06/09/20 22:00 Levemir Vial SQ BID@0700,2200 [facility] Melatonin 10 mg 06/09/20 22:00 Melatonin PO HS [facility] Multivitamins/Minerals/Vitamin C 1 tab 06/09/20 10:30 06/09/20 11:39 Tab-A-Vit - PO 1 tab DAILY [facility] Administration Paroxetine HCl 40 mg 06/09/20 10:00 06/09/20 11:39 Paxil - PO 40 mg DAILY [facility] Administration Potassium Chloride 20 meq 06/09/20 22:00 K-Dur - PO BID [facility] Silver Sulfadiazine 1 applic 06/10/20 10:00 Silvadene - TP DAILY [facility] ASSESSMENT/PLAN: Problem List - Problems (1) Cellulitis of right thigh Assessment/Plan: large wound of her right thigh after a tattoo was attempted On doxy and zosyn per ID Given Ancef in the ED Wound care daily, will add silvadine since it appears as a burn wound monitor wound for healing wound care consulted Code(s): L03.115 - CELLULITIS OF RIGHT LOWER LIMB (2) Skin lesions Assessment/Plan: scattered pink raised lesions in her inner thighs and a few on her lower left leg send for lymes titer on doxy per ID Code(s): L98.9 - DISORDER OF THE SKIN AND SUBCUTANEOUS TISSUE, UNSPECIFIED (3) Hypokalemia Assessment/Plan: repleted with 3 K runs, but remains low, will give PO and another 2 K riders and recheck tonight. Code(s): E87.6 - HYPOKALEMIA (4) DKA (diabetic ketoacidoses) Assessment/Plan: resolved dka bgms better controlled on novlog ss Code(s): E11.10 - TYPE 2 DIABETES MELLITUS WITH KETOACIDOSIS WITHOUT COMA Qualifiers: Diabetes mellitus type: type 2 Diabetes mellitus complication detail: without coma Qualified Code(s): E11.10 - Type 2 diabetes mellitus with ketoacidosis without coma (5) DVT prophylaxis Assessment/Plan: scds lovenox 40mg daily Code(s): Z29.9 - ENCOUNTER FOR PROPHYLACTIC MEASURES, UNSPECIFIED Visit type - Emergency Visit Emergency Visit: Yes ED Registration Date: 06/06/20 Care time: The patient presented to the Emergency Department on the above date and was hospitalized for further evaluation of their emergent condition. - New Patient This patient is new to me today: No - Critical Care Critical Care patient: No - Discharge Referral Referred to [facility] Med [facility] No
[2020-06-09] MEDS: MELATONIN 5 MG TABLETS PO SCH ×2 (21:13→21:21)
[2020-06-09] MEDS: POTASSIUM CHLORIDE TABS 20 MEQ TABLET.ER (FP) PO SCH (21:13)
[2020-06-09] MEDS ORDERED: PT OWN MED DRAWER 7, Y5N ONE (21:17)
[2020-06-09] MEDS ORDERED: LORazepam 1 MG TABLET PO ONE (23:19)
[2020-06-10] MEDS: KCL 10 MEQ IVPB 10 MEQ/100 ML INFUS.BAG IVPB SCH (01:00)
[2020-06-10] MEDS ORDERED: DEXTROSE 5%-WATER - 50 ML IVPB ONE ×2 (01:08→10:34)
[2020-06-10] MEDS ORDERED: PIPERACILLIN/TAZOBACTAM 3.375 GM VIAL IVPB ONE ×2 (01:08→10:34)
[2020-06-10] MEDS: PIPERACILLIN/TAZOB 3.375 GM 3.375 GM in DEXTROSE 5%-WATER - 50 ML IVPB SCH ×2 (02:05→10:56)
[2020-06-10] MEDS: busPIRone HCL 10 MG TABLET (FP) PO SCH (06:10)
[2020-06-10] MEDS: INSULIN (LEVEMIR) 100 UNITS/ML UNITS SQ SCH (06:10)
[2020-06-10] MEDS: INSULIN SLIDING SCALE (NOVOLOG) 1 VIAL SQ SCH ×2 (06:19→10:56)
[2020-06-10] MEDS: INSULIN (NOVOLOG) ASPART 100 UNITS/ML 10ML VIAL SQ SCH ×2 (06:21→10:56)
[2020-06-10 08:52] LABS: BASO % 0.8 % (0-2.0); HEMATOCRIT 39.9 % (32.4-45.2); HEMOGLOBIN 13.4 GM/dL (10.7-15.3); LYMPH % 39.6 % (8-40); MCH 29.1 pg (25.7-33.7); MCHC 33.7 g/dl (32.0-36.0); MEAN CELL VOLUME 86.4 fl (80-96); MONO % 9.3 % (3.8-10.2); NEUT % 47.3 % (42.8-82.8); PLATELET COUNT 392 K/MM3 (134-434); RBC 4.61 M/mm3 (3.60-5.2); RDW 13.8 % (11.6-15.6)
[2020-06-10 09:35] LABS: ALBUMIN 2.6 g/dl (3.4-5.0); BILIRUBIN,TOTAL 0.4 mg/dL (0.2-1); BLOOD UREA NITROGEN 6.2 mg/dL (7-18); CALCIUM 9.4 mg/dL (8.5-10.1); CREATININE 0.5 mg/dL (0.55-1.3); MAGNESIUM 2.1 mg/dL (1.8-2.4); POTASSIUM 3.4 mmol/L (3.5-5.1)
[2020-06-10] MEDS ORDERED: SILVER SULFADIAZINE 1% TOP CREAM 50 GM JAR TP SCH (10:00)
[2020-06-10] MEDS: BACITRACIN 15 GM TUBE TOPICAL OINTMENT TP SCH (10:55)
[2020-06-10] MEDS: DOXYCYCLINE HYCLATE 100 MG CAPSULE PO SCH (10:55)
[2020-06-10] MEDS: MULTIVITAMINS (DAILY MVI) TABLET (FP) PO SCH (10:55)
[2020-06-10] MEDS: POTASSIUM CHLORIDE TABS 20 MEQ TABLET.ER (FP) PO SCH (10:55)
[2020-06-10] MEDS: PARoxetine HCL 20 MG TABLET PO SCH (10:55)
[2020-06-10] MEDS: ENOXAPARIN NA (PORCINE) 40 MG/0.4 ML DISP.SYRIN SQ SCH (10:56)
[2020-06-10] MEDS: ALBUTEROL SO4 2.5/IPRATROPIUM 0.5 INH SOL 3 ML VIAL.NEB. NEB PRN (11:01)
--- NOTE | 2020-06-10 13:17 | PN ---
Progress Note, Physician - Current Medication List Current Medications: Active Medications Acetaminophen (Tylenol -) 650 mg PO Q6H PRN PRN Reason: PAIN LEVEL 6-10 Last Admin: 06/07/20 21:17 Dose: 650 mg Documented by: Albuterol/Ipratropium (Duoneb -) 1 amp NEB Q6H PRN PRN Reason: SHORTNESS OF BREATH Last Admin: 06/10/20 11:01 Dose: 1 amp Documented by: Bacitracin (Bacitracin -) 1 applic TP BID [facility] Last Admin: 06/10/20 10:55 Dose: 1 appful Documented by: Buspirone HCl (Buspar -) 10 mg PO TID [facility] Last Admin: 06/10/20 06:10 Dose: 10 mg Documented by: Doxycycline Hyclate (Vibramycin -) 100 mg PO BID@1000,1800 [facility] Last Admin: 06/10/20 10:55 Dose: 100 mg Documented by: Enoxaparin Sodium (Lovenox -) 40 mg SQ DAILY [facility] Last Admin: 06/10/20 10:56 Dose: 40 mg Documented by: Piperacillin Sod/Tazobactam (Sod 3.375 gm/ Dextrose) 50 mls @ 100 mls/hr IVPB Q8H-IV [facility]; Protocol Last Admin: 06/10/20 10:56 Dose: 100 mls/hr Documented by: Insulin Aspart (Novolog Vial) 5 units SQ TIDAC [facility]; Protocol Last Admin: 06/10/20 10:56 Dose: 5 units Documented by: Insulin Aspart (Novolog Vial Sliding Scale -) 1 vial SQ ACHS [facility]; Protocol Last Admin: 06/10/20 10:56 Dose: Not Given Documented by: Insulin Detemir (Levemir Vial) 7 units SQ BID@0700,2200 [facility] Last Admin: 06/10/20 06:10 Dose: 7 units Documented by: Melatonin (Melatonin) 10 mg PO HS [facility] Last Admin: 06/09/20 21:21 Dose: Not Given Documented by: Multivitamins/Minerals/Vitamin C (Tab-A-Vit -) 1 tab PO DAILY [facility] Last Admin: 06/10/20 10:55 Dose: 1 tab Documented by: Paroxetine HCl (Paxil -) 40 mg PO DAILY [facility] Last Admin: 06/10/20 10:55 Dose: 40 mg Documented by: Potassium Chloride (K-Dur -) 20 meq PO BID [facility] Last Admin: 06/10/20 10:55 Dose: 20 meq Documented by: Silver Sulfadiazine (Silvadene -) 1 applic TP DAILY [facility] Last Admin: 06/10/20 12:31 Dose: 1 applic Documented by: - Objective Vital Signs: Vital Signs Temperature 98.7 F 06/10/20 06:59 Pulse Rate 87 06/10/20 06:59 Respiratory Rate 20 06/10/20 06:59 Blood Pressure 106/64 06/10/20 06:59 O2 Sat by Pulse Oximetry (%) 98 06/09/20 22:00 Labs: CBC, BMP 06/10/20 07:38 06/10/20 07:38
[2020-06-10 14:53] VITALS: BP 116/66; PULSE 77; TEMP 98.4
--- NOTE | 2020-06-10 15:04 | DS ---
Physical Exam: SUBJECTIVE: Patient seen and examined OBJECTIVE: Patient is a 39 year old woman with PMH of Insulin-treated DM, HTN, Depression, Nonadherence with diabetes regimen and Anxiety who presents to the ER with five days of decreased oral intake following the of her son. She was admitted for DKA and received SQ insulin, no drip was started. She was also noted to have right upper thigh cellulitis after a tattoo. Patient to be discharged today with outpatient follow up at the [facility] on Sunday, Jun 14 at 3pm. Vital Signs Period Temp Pulse Resp BP Sys/Bear Pulse Ox Last 24 Hr 98.2 F-99.1 F 77-88 20-20 106-138/58-66 98-100 PHYSICAL EXAM GENERAL: The patient is awake, alert, and fully oriented, in no acute distress. HEAD: Normal with no signs of trauma. EYES: PERRL, extraocular movements intact, sclera anicteric, conjunctiva clear. No ptosis. ENT: Ears normal, nares patent, oropharynx clear without exudates, moist mucous membranes. NECK: Trachea midline, full range of motion, supple. LUNGS: Breath sounds equal, clear to auscultation bilaterally HEART: Regular rate and rhythm ABDOMEN: Soft, nontender, nondistended, normoactive bowel sounds EXTREMITIES: right thigh cellulitis, appears as a burn rob, multiple small raised pink lesions, will send for lymes titer NEUROLOGICAL: Normal speech, gait not observed. PSYCH: Normal mood, normal affect. SKIN: Warm, dry, normal turgor, no rashes or lesions noted LABS Laboratory Results - last 24 hr 06/09/20 06/09/20 06/09/20 16:45 17:18 21:11 WBC RBC Hgb Hct MCV MCH MCHC RDW Plt Count MPV Absolute Neuts (auto) Neutrophils % Lymphocytes % Monocytes % Eosinophils % Basophils % Nucleated RBC % Sodium Potassium 3.0 L Chloride Carbon Dioxide Anion Gap BUN Creatinine Est GFR (CKD-EPI)AfAm Est GFR (CKD-EPI)NonAf POC Glucometer 176 190 Random Glucose Calcium Magnesium Total Bilirubin AST ALT Alkaline Phosphatase Total Protein Albumin 06/10/20 06/10/20 06/10/20 06:17 07:38 07:38 WBC 8.0 RBC 4.61 Hgb 13.4 Hct 39.9 MCV 86.4 MCH 29.1 MCHC 33.7 RDW 13.8 Plt Count 392 MPV 8.0 Absolute Neuts (auto) 3.8 Neutrophils % 47.3 Lymphocytes % 39.6 D Monocytes % 9.3 Eosinophils % 3.0 D Basophils % 0.8 Nucleated RBC % 0 Sodium 143 Potassium 3.4 L Chloride 106 Carbon Dioxide 31 Anion Gap 6 L BUN 6.2 L Creatinine 0.5 L Est GFR (CKD-EPI)AfAm 141.30 Est GFR (CKD-EPI)NonAf 121.92 POC Glucometer 191 Random Glucose 129 H Calcium 9.4 Magnesium 2.1 Total Bilirubin 0.4 AST 13 L ALT 20 Alkaline Phosphatase 85 Total Protein 6.0 L Albumin 2.6 L 06/10/20 10:54 WBC RBC Hgb Hct MCV MCH MCHC RDW Plt Count MPV Absolute Neuts (auto) Neutrophils % Lymphocytes % Monocytes % Eosinophils % Basophils % Nucleated RBC % Sodium Potassium Chloride Carbon Dioxide Anion Gap BUN Creatinine Est GFR (CKD-EPI)AfAm Est GFR (CKD-EPI)NonAf POC Glucometer 113 Random Glucose Calcium Magnesium Total Bilirubin AST ALT Alkaline Phosphatase Total Protein Albumin HOSPITAL COURSE: Date of Admission:06/06/20 Date of Discharge: 06/10/20 Minutes to complete discharge: 45 Discharge Summary Problems reviewed: Yes Reason For Visit: DIABETIC KETOACIDOSIS Current Active Problems Cellulitis of right thigh (Acute) DKA (diabetic ketoacidoses) (Acute) DVT prophylaxis (Acute) Hypokalemia (Acute) Skin lesions (Acute) Condition: Improved - Instructions Diet, Activity, Other Instructions: [place] You were admitted for leg infection and uncontrolled diabetes. your potassium levels were also very low. Here is our recommendations. Right thigh wound Clean once per day with sterile water and apply Silvadenie over wound. Secure with non stick dressing. Continue Doxycline 100mg TWICE per day for 10 more days START Augmentin 875mg TWICE per day for 5 more days Diabetes Continue your home dose of humolog and levemir. Check your blood sugars before meals. Repeat your A1c in 2 months to assure that it is improving. Low Potassium continue the potassium supplements 20mg TWICE per day for 7 days total and follow up at the [facility] on June 14 at 3pm for a follow up appt. Bring $150 to cover cost of visit and note that you may be charged more for the blood work. thank you for allowing us to care for you Referrals: [facility] [place] [facility] [place] [Provider Group] (You have an appointment with Dr. Jacome on SundayJune 14 at 3pm at the [facility]. Bring your discharge paperwork) Disposition: HOME - Home Medications Comprehensive Discharge Medication List: Ambulatory Orders Atorvastatin Ca [Lipitor] 40 mg PO HS 06/07/20 Buspirone HCl [Buspar -] 10 mg PO TID 06/07/20 Lisinopril 5 mg PO BID 06/07/20 Paroxetine HCl 40 mg PO DAILY 06/07/20 hydrOXYzine PAMOATE [Vistaril -] 50 mg PO TID PRN 06/07/20 traZODone HCL [Trazodone HCl] 150 mg PO HS 06/07/20 Baclofen 10 mg PO DAILY 06/09/20 Cetirizine HCl [All Day Allergy] 10 mg PO DAILY 06/09/20 Gabapentin 600 mg PO DAILY 06/09/20 Lorazepam [Ativan] 10 mg PO HS 06/09/20 Amoxicillin/Potassium Clav [Augmentin 875-125 Tablet] 1 each PO BID #10 tablet 06/10/20 Doxycycline Hyclate [Vibramycin -] 100 mg PO BID@1000,1800 #20 capsule 06/10/20 Potassium Chloride [K-Dur -] 20 meq PO BID #14 tablet.er 06/10/20 Silver Sulfadiazine 1% Top Cr [Silvadene -] 1 applic TP DAILY #1 jar 06/10/20 Problem List - Problems (1) Cellulitis of right thigh Code(s): L03.115 - CELLULITIS OF RIGHT LOWER LIMB (2) Skin lesions Code(s): L98.9 - DISORDER OF THE SKIN AND SUBCUTANEOUS TISSUE, UNSPECIFIED (3) Hypokalemia Code(s): E87.6 - HYPOKALEMIA (4) DKA (diabetic ketoacidoses) Code(s): E11.10 - TYPE 2 DIABETES MELLITUS WITH KETOACIDOSIS WITHOUT COMA Qualifiers: Diabetes mellitus type: type 2 Diabetes mellitus complication detail: without coma Qualified Code(s): E11.10 - Type 2 diabetes mellitus with ketoacidosis without coma (5) DVT prophylaxis Code(s): Z29.9 - ENCOUNTER FOR PROPHYLACTIC MEASURES, UNSPECIFIED This patient is new to me today: No Emergency Visit: Yes ED Registration Date: 06/06/20 Care time: The patient presented to the Emergency Department on the above date and was hospitalized for further evaluation of their emergent condition. Critical Care patient: No - Discharge Referral Referred to [facility] Med P.C.: No
== END 2020-06-10 15:49 | disposition home or self-care (01) | DRG 420 ==
LOC: JER 18:48 → JERBED 23:20 → J6S 06-08 00:10
PROVIDERS: ADMIT Internal Medicine Pulmonary Disease; ATTEND Nurse Practitioner Family
DX: E11.10 Type 2 diabetes mellitus with ketoacidosis without coma (principal); E66.9 Obesity, unspecified; Z68.32 Body mass index [BMI] 32.0-32.9, adult; F41.8 Other specified anxiety disorders; R63.0 Anorexia; R62.7 Adult failure to thrive; R11.2 Nausea with vomiting, unspecified; R44.1 Visual hallucinations; L03.115 Cellulitis of right lower limb; E11.65 Type 2 diabetes mellitus with hyperglycemia; E78.5 Hyperlipidemia, unspecified; E87.6 Hypokalemia; R00.0 Tachycardia, unspecified
CPT/HCPCS: 36415; 71045-TC-FY; 80048; 80053; 80307; 81003; 82010; 82550; 82803; 82962; 83036; 83605; 83690; 83735; 84100; 84132; 84443; 84484; 84703; 85025; 86618; 87040; 87086; 93005; 93010; 94010; 94640; 99285-25; U0003